=== PATIENT | female | born 1945 | race Caucasian/White ===

== ENCOUNTER 2016-11-25 13:51 | Day surgery (SDC) | payer MEDICARE, BC ==
[~2016-11-25 13:51] MED LIST: Acetaminophen TAB* 325 MG PO PRN; Buffered Lidocaine 0.9% SYRIN* 5 ML/SYR SYRINGE INTRADERM ONE; Buffered Lidocaine 0.9% SYRIN* 5 ML/SYR SYRINGE ONE; Cyclopentolate 1% OPTH.SOL* 2 ML BTL ONE; Ketorolac 0.5% OPHTH (NF) 0.5 % 5 ML BTL ONE; Lidocaine 1% MPF wEPI 200,000* 30 ML SDV ONE; Lidocaine 1% MPF* 2 ML VIAL ONE; Lidocaine 2% EPI 1:200000 MPF* 20 ML VIAL ONE; Neomycin/Polymy/Dex OPTH.SUSP* MAXITROL 0.1% 5 ML ONE; Phenylephrine 2.5% OPTH.SOL* 2 ML BTL ONE; Povidone Iodine 5% OPTH* 30 ML BTL ONE; Proparacaine 0.5% OPHTH.SOL* 15 ML BTL ONE; acetaZOLAMIDE TAB* 250 MG ONE
[2016-11-25] MEDS ORDERED: Midazolam* 1 MG/ML 2 ML VIAL (2 MG) ONE (14:59)
[2016-11-25 15:48] VITALS: BP 145/79
--- NOTE | 2016-11-25 16:23 | OP ---
DATE OF OPERATION: 11/25/2016 - [facility] DATE OF : 1945. SURGEON: Rosendo Campbell M.D. PREOPERATIVE DIAGNOSIS: Cataract left eye. POSTOPERATIVE DIAGNOSIS: Cataract left eye. OPERATIVE PROCEDURE: Phacoemulsification left eye with IOL. DESCRIPTION OF PROCEDURE: The patient was brought to the operating room after being given 1/2% Alcaine with epinephrine drops in the preoperative area. The eye was prepped and draped in the usual sterile fashion. Sterile drape and eyelid speculum were placed. Again, topical 1/2% Alcaine with epinephrine was given. A paracentesis incision was made at the 3 o'clock position with the No.75 blade. Clear cornea incision 2.2 x 2.2-mm was created at the 6 o'clock position starting at the anterior limbus using the 2.2-mm keratome. The anterior chamber was irrigated with 0.4 mL of 1% non-preservative intracameral lidocaine and filled with DisCoVisc. A capsulorrhexis was completed using the cystotome and the Utrata forceps. Hydrodissection was performed with balanced salt solution. The lens nucleus was removed with the Phacoemulsification handpiece without incident. Cortex was removed with the irrigation-aspiration handpiece. The capsular bag was re-inflated using DisCoVisc and an [id number] implant was inserted with the shooter. The irrigation-aspiration handpiece was used to remove all residual DisCoVisc. The eye was refilled with balanced salt solution and the wound checked and found to be watertight. Topical Maxitrol drops were given. [id number]/[facility] #: [id number] [facility]Low
== END 2016-11-25 15:39 | disposition home or self-care (01) ==
LOC: OREAST 13:51
PROVIDERS: ATTEND Specialist
DX: H25.12 Age-related nuclear cataract, left eye (principal); E11.3293 Type 2 diabetes mellitus with mild nonproliferative diabetic retinopathy without macular edema, bilateral; Z96.1 Presence of intraocular lens; F41.9 Anxiety disorder, unspecified; E78.00 Pure hypercholesterolemia, unspecified; I10 Essential (primary) hypertension; Z79.84 Long term (current) use of oral hypoglycemic drugs; Z88.0 Allergy status to penicillin; Z85.820 Personal history of malignant melanoma of skin; Z85.3 Personal history of malignant neoplasm of breast
CPT/HCPCS: A9270-GY; J2001; J2250; V2632

== ENCOUNTER 2016-12-04 06:49 | Day surgery (SDC) | payer MEDICARE, BC ==
[2016-12-04] MEDS ORDERED: Lidocaine 1% INJ* 10 MG/ML 30 ML SDV ONE (07:01)
[2016-12-04 08:40] VITALS: BP 183/89
--- NOTE | 2016-12-04 09:05 | RAD ---
INDICATION: Power port insertion. COMPARISON: Comparison is made with a prior chest x-ray study from October 13, [address] of the chest from October 31, 2016. TECHNIQUE: A single portable view of the chest was obtained upright. FINDINGS: There is a power port central venous catheter present on the right side. The catheter tip projects overlying the superior vena cava. The heart is moderately enlarged and unchanged. There is mild increased density present laterally within the left lung which appears to correlate with nodular pleural thickening on the prior CT of the chest study. The lungs are otherwise clear. No pneumothorax is seen. IMPRESSION: 1. STATUS POST POWERPORT INSERTION, NO EVIDENCE FOR ACUTE FINDING. 2. NODULAR PLEURAL THICKENING IN THE LEFT LUNG.
--- NOTE | 2016-12-04 09:15 | RAD ---
INDICATION: chest port placement COMPARISONS: None relevant TECHNIQUE: Fluoroscopy was provided for a vascular access procedure. Total fluoroscopy time is: 7.5 seconds FINDINGS: Spot images demonstrate a right-sided chest port from a subclavian approach with the tip overlying the cavoatrial junction. IMPRESSION: FLUOROSCOPY WAS PROVIDED FOR A VASCULAR ACCESS PROCEDURE CPT II Codes: 6045F
--- NOTE | 2016-12-04 11:08 | OP ---
CC: Dr. Carcamo; Dr. Spencer; Dr. Parker OPERATIVE REPORT: DATE OF OPERATION: 12/04/16 DATE OF : 41 SURGEON: Tr Carcamo MD ATTENDING RADIOLOGIST: None. ANESTHESIOLOGIST: None. PRE-OP DIAGNOSIS: Carcinoma of the lung. POST-OP DIAGNOSIS: Carcinoma of the lung. OPERATIVE PROCEDURE: Placement of right subclavian 8-[place]ian PowerPort. DESCRIPTION OF PROCEDURE: The patient was supine on the fluoroscopy table. The right chest and nec k region were prepped with antiseptic, draped in a sterile fashion. Local infiltrative anesthesia w as administered and a subclavian incision was created approximately 3 cm. Inferior pocket was creat ed and subclavian venipuncture was carried out. Guidewire passed under fluoroscopic guidance. [place] ter passed through the peel-away introducer, measured and cut at 23 cm, attached to the port, which was sutured in the pocket using 2-0 Prolene. The pocket was closed with 3-0 Vicryl and 5-0 Vicryl. There was good blood return. It was flushed with saline solution and heparinized solution. Steri- Strips were placed and Tegaderm dressing was placed. She tolerated this well and was brought to rec overy room in good condition. There were no complications. No drains. No pathologic specimens. S ponge and instrument counts correct. Estimated blood loss 10 mL. [id number]/[facility] #: [id number]
== END 2016-12-04 09:00 | disposition home or self-care (01) ==
LOC: OR 06:49
PROVIDERS: ATTEND Surgery
DX: C34.90 Malignant neoplasm of unspecified part of unspecified bronchus or lung (principal); Z79.899 Other long term (current) drug therapy
CPT/HCPCS: 71010; C1788; J1642; J2001

== ENCOUNTER 2017-03-24 16:36 | Inpatient (IN) | payer MEDICARE, BC ==
[2017-03-24] MEDS ORDERED: Magnesium Sulf 4 GM/100 ML IV* 4,000 MG/100 ML BAG IVPB ONE (16:39)
[2017-03-24] MEDS ORDERED: Ondansetron INJ* 2 MG/ML VIAL IV PRN (16:51)
[2017-03-24] MEDS ORDERED: ALPRAZolam TAB* 0.25 MG PO PRN (16:52)
[2017-03-24] MEDS ORDERED: Acetaminophen TAB* 325 MG PO PRN (16:54)
[2017-03-24] MEDS: NS 0.9% 1000 ML* 1,000 ML IV SCH (17:46)
[2017-03-25] MEDS: Enoxaparin(*) 80 MG/0.8 ML SYR SUBCUT SCH ×2 (03:33→16:10)
[2017-03-25 05:34] LABS: ABS Basophils 0 10^3/ul (0-0.2); ABS Eosinophils 0 10^3/ul (0-0.6); ABS Lymphocytes 1.2 10^3/ul (1.0-4.8); ABS Monocytes 0.5 10^3/ul (0-0.8); ABS Nucleated RBC 0 10^3/ul; Eosinophil % 1.1 % (0-6); Hematocrit 30 % (35-47); Hemoglobin 10.7 g/dl (12.0-16.0); Mean Corpuscular HGB Conc 35 g/dl (31-36); Mean Corpuscular Hemoglobin 35 pg (27-31); Mean Corpuscular Volume 99 fL (80-97); Mean Platelet Volume 7 um3 (7.4-10.4); Nucleated Red Blood Cells % 0.3; Platelet Count 101 10^3/ul (150-450); Red Blood Count 3.06 10^6/ul (4.0-5.4); Red Cell Distribution Width 18 % (10.5-15); White Blood Count 3.7 10^3/ul (3.5-10.8)
[2017-03-25 05:47] LABS: EGFR Non-African American 94.1 (>60)
[2017-03-25] MEDS: Enalapril TAB* 20 MG PO SCH (08:19)
[2017-03-25] MEDS: Atenolol TAB* 50 MG PO SCH (08:19)
[2017-03-25] MEDS: Folic Acid TAB* 1 MG PO SCH (08:19)
[2017-03-25] MEDS: Citalopram TAB* 10 MG PO SCH (08:19)
--- NOTE | 2017-03-25 10:34 | PN ---
Progress Note - Progress Note Date of Service: 03/25/17 SOAP: Subjective: still quite SOB with any activity. feels similar to previous PE but more intense. no chest pain or diaphoresis Objective: Vital Signs Temp Pulse Resp BP Pulse Ox 98.0 F 87 24 155/94 99 03/25/17 07:20 03/25/17 07:20 03/25/17 07:55 03/25/17 07:20 03/25/17 07:20 perr eomi op moist cta bl s1 s2 nl soft obese nt +bs no le edema a+O x3, nonfocal neurological exam Laboratory Results - last 24 hr 03/24/17 03/25/17 03/25/17 22:21 05:20 05:20 WBC 3.7 RBC 3.06 L Hgb 10.7 L Hct 30 L MCV 99 H MCH 35 H MCHC 35 RDW 18 H Plt Count 101 L MPV 7 L Neut % (Auto) 54.1 Lymph % (Auto) 32.0 Gordon % (Auto) 12.4 H Eos % (Auto) 1.1 Baso % (Auto) 0.4 Absolute Neuts (auto) 2.0 Absolute Lymphs (auto) 1.2 Absolute Monos (auto) 0.5 Absolute Eos (auto) 0 Absolute Basos (auto) 0 Absolute Nucleated RBC 0 Nucleated RBC % 0.3 Sodium 137 Potassium 3.5 Chloride 104 Carbon Dioxide 29 Anion Gap 4 BUN 12 Creatinine 0.62 Est GFR ( Amer) 121.0 Est GFR (Non-Af Amer) 94.1 BUN/Creatinine Ratio 19.4 Glucose 175 H POC Glucose (mg/dL) 200 H Calcium 8.7 Magnesium 2.0 Total Bilirubin 0.70 AST 19 ALT 15 Alkaline Phosphatase 77 Total Protein 6.2 L Albumin 3.3 Globulin 2.9 Albumin/Globulin Ratio 1.1 03/25/17 07:27 WBC RBC Hgb Hct MCV MCH MCHC RDW Plt Count MPV Neut % (Auto) Lymph % (Auto) Gordon % (Auto) Eos % (Auto) Baso % (Auto) Absolute Neuts (auto) Absolute Lymphs (auto) Absolute Monos (auto) Absolute Eos (auto) Absolute Basos (auto) Absolute Nucleated RBC Nucleated RBC % Sodium Potassium Chloride Carbon Dioxide Anion Gap BUN Creatinine Est GFR ( Amer) Est GFR (Non-Af Amer) BUN/Creatinine Ratio Glucose POC Glucose (mg/dL) 178 H Calcium Magnesium Total Bilirubin AST ALT Alkaline Phosphatase Total Protein Albumin Globulin Albumin/Globulin Ratio Acetaminophen (Tylenol Tab*) 650 mg PO Q4H PRN PRN Reason: HEADACHE/PAIN Alprazolam (Xanax Tab*) 0.25 mg PO BID PRN PRN Reason: ANXIETY Atenolol (Tenormin Tab*) 100 mg PO QAM [facility] Last Admin: 03/25/17 08:19 Dose: 100 mg Citalopram Hydrobromide (Celexa Tab*) 10 mg PO QAM [facility] Last Admin: 03/25/17 08:19 Dose: 10 mg Enalapril Maleate (Vasotec Tab*) 20 mg PO QAM [facility] Last Admin: 03/25/17 08:19 Dose: 20 mg Enoxaparin Sodium (Lovenox(*)) 80 mg SUBCUT Q12H [facility] Last Admin: 03/25/17 03:33 Dose: 80 mg Folic Acid (Folvite Tab*) [facility] [place] Admin: 03/25/17 08:19 Dose: 1 mg Sodium Chloride (Ns 0.9% 1000 Ml*) 1,000 mls @ 50 mls/hr IV .PER RATE [facility] Last Admin: 03/24/17 17:46 Dose: 50 mls/hr Ondansetron HCl (Zofran Inj*) 4 mg IV Q4H PRN PRN Reason: nausea or vomiting Assessment: 72 yo F w PMH of remote melanoma, local breast cancer, and then T2N0 lung cancer , with recurrence of her lung CA on palliative carbo/pemetrexed presenting with SOB and found to have large burden acute PE. Clinically slightly better, though still hypoxic and SOB. Will cont observation on [facility] for 24 more hours. Plan: -cont lovenox BID -cont ivfs -cont supplemental O2 -hypokalemia, likely chemo induced, will replete today -pancytopenia: chemo induced will need to watch platelets closely on anticoagulation
[2017-03-25] MEDS: Potassium Chlor TAB* 20 MEQ TAB.ER PO SCH (12:05)
[2017-03-25] MEDS: NS 0.9% 1000 ML* 1,000 ML IV SCH (13:03)
[2017-03-26] MEDS: Enoxaparin(*) 80 MG/0.8 ML SYR SUBCUT SCH (04:52)
[2017-03-26 05:42] LABS: Hematocrit 29 % (35-47); Hemoglobin 10.2 g/dl (12.0-16.0); Mean Corpuscular HGB Conc 35 g/dl (31-36); Mean Corpuscular Hemoglobin 35 pg (27-31); Mean Corpuscular Volume 99 fL (80-97); Red Blood Count 2.93 10^6/ul (4.0-5.4); Red Cell Distribution Width 18 % (10.5-15); White Blood Count 3.1 10^3/ul (3.5-10.8)
[2017-03-26 05:43] LABS: ABS Basophils 0 10^3/ul (0-0.2); ABS Eosinophils 0 10^3/ul (0-0.6); ABS Lymphocytes 1.2 10^3/ul (1.0-4.8); ABS Monocytes 0.5 10^3/ul (0-0.8); ABS Neutrophils 1.3 10^3/ul (1.5-7.7); ABS Nucleated RBC 0 10^3/ul; Eosinophil % 1.2 % (0-6); Lymphocyte % 38.6 % (25-47); Nucleated Red Blood Cells % 0.1
[2017-03-26 06:00] LABS: EGFR Non-African American 97.7 (>60)
[2017-03-26 06:17] LABS: Mean Platelet Volume 7 um3 (7.4-10.4); Platelet Count 82 10^3/ul (150-450)
[2017-03-26] MEDS: Atenolol TAB* 50 MG PO SCH (08:23)
[2017-03-26] MEDS: Folic Acid TAB* 1 MG PO SCH (08:23)
[2017-03-26] MEDS: Potassium Chlor TAB* 20 MEQ TAB.ER PO SCH (08:23)
[2017-03-26] MEDS: Citalopram TAB* 10 MG PO SCH (08:23)
[2017-03-26] MEDS: Enalapril TAB* 20 MG PO SCH (08:23)
--- NOTE | 2017-03-26 09:41 | DS ---
- Discharge Summary Admission Date: 03/24/2017 Discharge Date: 03/26/2017 Discharge Diagnosis: 1. PE: acute high burden with hypoxia, now on Lovenox 2. Hypoxia: improved with supplemental O2 3. DM: resume oral anti-diabetic meds, f/u primary 4. HTN: resume home meds, f/u primary Discharge Medications: Home Medications Medication Instructions Recorded Confirmed Type Atenolol [Tenormin 100 MG] 100 mg PO QAM 11/05/16 03/24/17 History Calcium Carbonate-Vitamin D 1 tab PO BID 11/05/16 03/24/17 History [Calcium 500 + D 500-125 mg-Unit] Citalopram Hydrobromide 10 mg PO QAM 11/05/16 03/24/17 History Cyanocobalamin TAB* [Vitamin B12 1 tab PO QAM 11/05/16 03/24/17 History TAB*] Enalapril Maleate 20 mg PO QAM 11/05/16 03/24/17 History Glipizide [Glucotrol] 10 mg PO QAM 11/05/16 03/24/17 History Lovastatin [Altoprev] 40 mg PO QAM 11/05/16 03/24/17 History Acetaminophen [Acetaminophen ER] 650 mg PO Q6HR PRN 11/21/16 03/24/17 History Folic Acid TAB* [Folvite TAB*] 1 mg PO QAM 11/21/16 03/24/17 History ALPRAZolam TAB* [Xanax TAB*] 0.25 mg PO BID PRN 03/24/17 03/24/17 History Enoxaparin Sodium [Lovenox] 80 mg SUBCUT BID 03/24/17 03/24/17 History Magnesium [Magnesium 400 mg] 1 tab PO 03/24/17 History Ondansetron HCl [Zofran 4 MG TAB] 4 mg PO Q4HR 03/24/17 03/24/17 History Prochlorperazine TAB* [Compazine 10 mg PO Q6H PRN 03/24/17 03/24/17 History Tab*] Enoxaparin(*) [Lovenox(*)] 80 mg SUBCUT Q12H #60 syringe 03/26/17 Rx Potassium Chlor TAB* [Potassium 20 meq PO DAILY #30 tab.er 03/26/17 Rx Chlor TAB 20 MEQ*] Hospital Course: Please see admission note for full H&P, however, briefly, Mrs. Cee is well known to our service due to her recent recurrence of NSCLC s/p resection 2 years ago. She started palliative Carbo/Pem and completed 6 cycles last week. She presented to the office on 03/24 with weakness and concern for diarrhea. Unfortunately in the office she had significant tachypnea, hypoxia on RA, and ultimately was sent for a STAT CTA which reveal multiple PEs with high burden causing increase right ventricular pressure. She was admitted to the hospital for close monitoring with tele and supplemental O2 and was immediately started on anti-coagulation with Lovenox 1 mg/kg (80 mg) subq BID. Over last 2 days she has remained stable with improvement by her report over the last 24 hours in terms of decreasing respiratory effort with exertion. She remains hypoxic on RA however and will be d/c'd home with supplemental O2. I have encouraged her to f/u with her primary care provider (who manages her DM and HTN) and she will f/u with Dr. Spencer following re-staging scan. Plan of care was reviewed at length and all questions answered. >40 min spent with >50% face to face counseling
[2017-03-26 11:40] VITALS: BP 137/77
== END 2017-03-26 13:36 | disposition home or self-care (01) | DRG 175 ==
LOC: MEDTELE 16:46 → OBSVTOIN 03-25 10:00
PROVIDERS: ADMIT Internal Medicine Hematology & Oncology; ATTEND Internal Medicine Hematology & Oncology
DX: I26.99 Other pulmonary embolism without acute cor pulmonale (principal); D61.810 Antineoplastic chemotherapy induced pancytopenia; C34.90 Malignant neoplasm of unspecified part of unspecified bronchus or lung; E11.9 Type 2 diabetes mellitus without complications; R09.02 Hypoxemia; I10 Essential (primary) hypertension; Z79.01 Long term (current) use of anticoagulants; R06.82 Tachypnea, not elsewhere classified; Z85.820 Personal history of malignant melanoma of skin; Z88.0 Allergy status to penicillin; E78.00 Pure hypercholesterolemia, unspecified; Z98.51 Tubal ligation status; Z72.89 Other problems related to lifestyle; Z82.49 Family history of ischemic heart disease and other diseases of the circulatory system; Z85.3 Personal history of malignant neoplasm of breast; E87.6 Hypokalemia
CPT/HCPCS: 36415; 36591; 71275; 80053; 83735; 85025; 85060; 96360; 96361; 99215; 99220; 99224; 99239; A9270-GY; G0378; G0463; J1642; J1650; J3475; Q9967

== ENCOUNTER 2017-04-12 18:10 | Emergency (ER) | payer MEDICARE, BC ==
[2017-04-12] MEDS ORDERED: Ondansetron INJ* 2 MG/ML VIAL IV ONE (19:13)
[2017-04-12] MEDS ORDERED: NS 0.9% 1000 ML* 1,000 ML IV ONE (19:13)
--- NOTE | 2017-04-12 19:37 | RAD ---
INDICATION: Vomiting. COMPARISON: Comparison is made with a prior study from December 04, 2016. TECHNIQUE: A portable view of the chest was obtained. FINDINGS: There is a power port central venous catheter on the right side. The catheter tip projects over the superior vena cava. The heart appears mildly enlarged and unchanged. There is elevation of the left hemidiaphragm which is unchanged and a small left basilar infiltrate. No pleural effusion is seen. IMPRESSION: SMALL LEFT BASILAR INFILTRATE.
[2017-04-12 19:47] LABS: Hematocrit 34 % (35-47); Hemoglobin 11.9 g/dl (12.0-16.0); Mean Corpuscular HGB Conc 35 g/dl (31-36); Mean Corpuscular Hemoglobin 35 pg (27-31); Mean Corpuscular Volume 100 fL (80-97); Mean Platelet Volume 7 um3 (7.4-10.4); Platelet Count 143 10^3/ul (150-450); Red Blood Count 3.42 10^6/ul (4.0-5.4); Red Cell Distribution Width 17 % (10.5-15); White Blood Count 11.3 10^3/ul (3.5-10.8)
[2017-04-12 19:54] LABS: ABS Basophils 0.1 10^3/ul (0-0.2); ABS Eosinophils 0 10^3/ul (0-0.6); ABS Lymphocytes 0.6 10^3/ul (1.0-4.8); ABS Monocytes 1.9 10^3/ul (0-0.8); ABS Neutrophils 8.7 10^3/ul (1.5-7.7); ABS Nucleated RBC 0 10^3/ul; Eosinophil % 0 % (0-6); Lymphocyte % 5.7 % (25-47); Nucleated Red Blood Cells % 0
[2017-04-12 20:05] LABS: EGFR Non-African American 72.2 (>60)
[2017-04-12] MEDS ORDERED: Levofloxacin 750 MG IVPREMIX(* 750 MG/150 ML BAG IVPB ONE (20:05)
--- NOTE | 2017-04-12 21:52 | ED ---
Rian Andersen Thomas, scribed for Asher Best MD on 04/12/17 at 1936 . GI/ HPI - HPI Summary HPI Summary: The patient is a 72 year old female complaining of vomiting that began yesterday. She had an episode of diarrhea. The patient additionally complains of body aches and a chronic cough. She did not eat today. She has a history of lung cancer and she had immunotherapy three days ago. She is on Lovenox for a previous diagnosis of pulmonary embolism. - History of Current Complaint Chief Complaint: EDNauseaVomitDiarrh Time Seen by Provider: 04/12/17 18:34 Stated Complaint: VOMITING/FEVER Hx Obtained From: Patient Onset/Duration: Started Days Ago - 1, Still Present Timing: Constant Severity: Moderate Current Severity: Moderate Pain Intensity: 4 Associated Signs and Symptoms: Positive: Other: - Vomiting, diarrhea, cough, body aches Aggravating Factor(s): Nothing Alleviating Factor(s): Nothing - Additional Pertinent History Primary Care Physician: ADRIAN - Allergy/Home Medications Allergies/Adverse Reactions: Allergies Allergy/AdvReac Type Severity Reaction Status Date / Time Penicillins Allergy Fever Verified 03/30/17 10:09 PMH/Surg Hx/FS Hx/Imm Hx Endocrine/Hematology History: Reports: Hx Diabetes - Type II Denies: Hx Systemic Lupus Erythematosus, Hx Thyroid Disease, Hx Anemia Cardiovascular History: Reports: Hx Coronary Artery Disease - CHOLESTEROL CONTROL WITH MEDS, Hx Hypercholesterolemia, Hx Hypertension Denies: Hx Congestive Heart Failure, Hx Pacemaker/ICD Respiratory History: Reports: Other Respiratory Problems/Disorders - LUNG CA- LEFT GI History: Reports: Other GI Disorders - OCCASIONAL INDIGESTION Denies: Hx Jaundice History: Denies: Hx Dialysis, Hx Renal Disease Musculoskeletal History: Reports: Hx Arthritis - BILATERAL KNEES Denies: Hx Rheumatoid Arthritis, Hx Osteoporosis Sensory History: Reports: Hx Cataracts - BILAT, Hx Contacts or Glasses - GLASSES FOR DISTANT Denies: Hx Hearing Aid Opthamlomology History: Reports: Hx Cataracts - BILAT, Hx Contacts or Glasses - GLASSES FOR DISTANT Psychiatric History: Denies: Hx Panic Disorder - Cancer History Cancer Type, Location and Year: Melanoma, Breast 2012, Lung 2013 Hx Chemotherapy: Yes - BREAST Hx Radiation Therapy: Yes - BREAST - Surgical History Surgery Procedure, Year, and Place: MELANOMA REMOVED FROM LEFT ANKLE AND BACK, OFFICE. 2000 APPENDECTOMY, [facility]. 2000 & FEW YEARS LATER, VENTRAL HERNIA REPAIR AT APPENDECTOMY SITE, [facility], lumpectomy left 2012. LL lobectomy 05/04/14. NEEDLE BIOPSY LEFT BREAST 03/12/2015. BILATERAL TUBAL LIGATION, [facility] Hx Anesthesia Reactions: No Infectious Disease History: No Infectious Disease History: Denies: Traveled Outside the [place] in Last 30 Days - Family History Known Family History: Positive: Other - no cancer hx, no malignant hyperthermia hx, no anesthesia reaction hx - Social History Alcohol Use: None Alcohol Amount: 2 MONTHLY Substance Use Type: Reports: None Hx Tobacco Use: No Smoking Status (MU): Never Smoked Tobacco Review of Systems Positive: Cough Positive: Vomiting, Diarrhea Positive: Myalgia All Other Systems Reviewed And Are Negative: Yes Physical Exam - Summary Physical Exam Summary: Appearance: The patient is well-nourished in no acute distress and in no acute pain. Skin: The skin is warm and dry and skin color reflects adequate perfusion. HEENT: The head is normocephalic and atraumatic. The pupils are equal and reactive. The conjunctivae are clear and without drainage. Nares are patent and without drainage. Mouth reveals moist mucous membranes and the throat is without erythema and exudate. The external ears are intact. The ear canals are patent and without drainage. The tympanic membranes are intact. Neck: the neck is supple with full range of motion and non-tender. There are no carotid bruits. There is no neck vein distension. Respiratory: She has crackles in bilateral bases. Cardiovascular: Heart is regular rate and rhythm. There is no murmur or rub auscultated. There is no peripheral edema and pulses are symmetrical and equal. Abdomen: The abdomen is soft and non-tender. There are normal bowel sounds heard in all four quadrants and there is no organomegaly palpated. Musculoskeletal: There is no back tenderness noted. Extremities are non-tender with full range of motion. There is good capillary refill. There is no peripheral edema or calf tenderness elicited. Neurological: Patient is alert and oriented to person, place and time. The patient has symmetrical motor strength in all four extremities. Cranial nerves are grossly intact. Deep tendon reflexes are symmetrical and equal in all four extremities. Psychiatric: The patient has an appropriate affect and does not exhibit any anxiety or depression. Triage Information Reviewed: Yes Vital Signs On Initial Exam: Initial Vitals Temp Pulse Resp BP Pulse Ox 99.1 F 112 20 129/90 94 04/12/17 18:17 18 18:17 04/12/17 18:17 18 18:17 04/12/17 18:17 Vital Signs Reviewed: Yes Diagnostics - Vital Signs Vital Signs Temp Pulse Resp BP Pulse Ox 04/12/17 19:00 105 134/69 94 04/12/17 18:42 111 94 04/12/17 18:41 134/70 04/12/17 18:17 99.1 F 112 20 129/90 94 - Laboratory Lab Results: Lab Results 04/12/17 04/12/17 04/12/17 Range/Units 19:36 19:36 19:36 WBC 11.3 H (3.5-10.8) 10^3/ul RBC 3.42 L (4.0-5.4) 10^6/ul Hgb 11.9 L (12.0-16.0) g/dl Hct 34 L (35-47) % MCV 100 H (80-97) fL MCH 35 H (27-31) pg MCHC 35 (31-36) g/dl RDW 17 H (10.5-15) % Plt Count 143 L (150-450) 10^3/ul MPV 7 L (7.4-10.4) um3 Neut % (Auto) 76.9 (38-83) % Lymph % (Auto) 5.7 L (25-47) % Mcculloch % (Auto) 16.7 H (1-9) % Eos % (Auto) 0 (0-6) % Baso % (Auto) 0.7 (0-2) % Absolute Neuts (auto) 8.7 H (1.5-7.7) 10^3/ul Absolute Lymphs (auto) 0.6 L (1.0-4.8) 10^3/ul Absolute Monos (auto) 1.9 H (0-0.8) 10^3/ul Absolute Eos (auto) 0 (0-0.6) 10^3/ul Absolute Basos (auto) 0.1 (0-0.2) 10^3/ul Absolute Nucleated RBC 0 10^3/ul Nucleated RBC % 0 Sodium 131 L (133-145) mmol/L Potassium 4.1 (3.5-5.0) mmol/L Chloride 95 L (101-111) mmol/L Carbon Dioxide 24 (22-32) mmol/L Anion Gap 12 H (2-11) mmol/L BUN 8 (6-24) mg/dL Creatinine 0.78 (0.51-0.95) mg/dL Est GFR ( Amer) 92.8 (>60) Est GFR (Non-Af Amer) 72.2 (>60) BUN/Creatinine Ratio 10.3 (8-20) Glucose 294 H (70-100) mg/dL Lactic Acid 1.9 (0.5-2.0) mmol/L Calcium 9.9 (8.6-10.3) mg/dL Total Bilirubin 1.00 (0.2-1.0) mg/dL AST 23 (13-39) U/L ALT 18 (7-52) U/L Alkaline Phosphatase 71 (34-104) U/L Total Creatine Kinase 37 (10-223) U/L Troponin I 0.03 (<0.04) ng/mL C-Reactive Protein 117.53 H (< 5.00) mg/L Total Protein 7.9 (6.4-8.9) g/dL Albumin 4.1 (3.2-5.2) g/dL Globulin 3.8 (2-4) g/dL Albumin/Globulin Ratio 1.1 (1-3) Lipase 25 (11.0-82.0) U/L Result Diagrams: 04/12/17 19:36 04/12/17 19:36 Lab Statement: Any lab studies that have been ordered have been reviewed, and results considered in the medical decision making process. - Radiology CXR Xray Interpretation: Positive (See Comments) - SMALL LEFT BASILAR INFILTRATE. Dr. Best has reviewed this report. Radiology Interpretation Completed By: Radiologist GIGU Course/Dx - Course Course Of Treatment: Ms. Cee presented with nausea as her primary C/O. Her CXR suggested infiltrate and her labs agreed with WBC and CRP elevations. She was stable here in the ED, given IV lovenox and will be D/C'd back to home to F/U with Dr. Spencer. - Diagnoses Provider Diagnoses: Pneumonia Discharge - Discharge Plan Condition: Stable Disposition: HOME Prescriptions: Levofloxacin TAB* [Levaquin TAB*] 750 mg PO DAILY #10 tab Patient Education Materials: Pneumonia (ED) Referrals: Saundra Escamilla MD [Primary Care Provider] - 3 Days Additional Instructions: Follow up with your primary care physician in three days. Return to the emergency department for any new or worsening symptoms. The documentation as recorded by the Rian gentile Thomas accurately reflects the service I personally performed and the decisions made by me, Asher Best MD.
[2017-04-12 22:43] VITALS: BP 106/66
== END 2017-04-12 22:57 | disposition home or self-care (01) ==
LOC: ED 18:10
DX: J18.9 Pneumonia, unspecified organism (principal); R11.10 Vomiting, unspecified; R19.7 Diarrhea, unspecified; R05 Cough; Z86.711 Personal history of pulmonary embolism
CPT/HCPCS: 36415; 71045; 80053; 82550; 83605; 83690; 84484; 85025; 86140; 96374; 99284; J2405

== ENCOUNTER 2017-04-30 21:41 | Observation (INO) | payer MEDICARE, BC ==
[2017-04-30] MEDS ORDERED: Acetaminophen TAB* 325 MG PO ONE (23:35)
[2017-04-30] MEDS ORDERED: NS 0.9% 1000 ML* 1,000 ML IV ONE (23:36)
[2017-04-30] MEDS ORDERED: Ondansetron INJ* 2 MG/ML VIAL IV ONE (23:36)
[2017-05-01] MEDS ORDERED: Levofloxacin 750 MG IVPREMIX(* 750 MG/150 ML BAG IVPB ONE (00:18)
[2017-05-01 00:35] LABS: ABS Basophils 0 10^3/ul (0-0.2); ABS Eosinophils 0 10^3/ul (0-0.6); ABS Lymphocytes 0.6 10^3/ul (1.0-4.8); ABS Monocytes 1.1 10^3/ul (0-0.8); ABS Neutrophils 6.5 10^3/ul (1.5-7.7); ABS Nucleated RBC 0 10^3/ul; Eosinophil % 0.1 % (0-6); Hematocrit 32 % (35-47); Hemoglobin 11.3 g/dl (12.0-16.0); Lymphocyte % 7.4 % (25-47); Mean Corpuscular HGB Conc 35 g/dl (31-36); Mean Corpuscular Hemoglobin 35 pg (27-31); Mean Corpuscular Volume 99 fL (80-97); Mean Platelet Volume 7 um3 (7.4-10.4); Nucleated Red Blood Cells % 0.1; Platelet Count 136 10^3/ul (150-450); Red Blood Count 3.25 10^6/ul (4.0-5.4); Red Cell Distribution Width 17 % (10.5-15); White Blood Count 8.2 10^3/ul (3.5-10.8)
[2017-05-01 00:43] LABS: INR 1.02 (0.77-1.02)
[2017-05-01 00:48] LABS: EGFR Non-African American 70.1 (>60)
[2017-05-01 02:17] LABS: Urine Appearance Clear; Urine Blood Negative (Negative); Urine Color Yellow; Urine Ketones 1+ (Negative); Urine Protein 1+(30 mg/dL) (Negative); Urine Specific Gravity 1.016 (1.010-1.030); Urine Urobilinogen Negative (Negative)
--- NOTE | 2017-05-01 02:39 | ED ---
Tere Andersen Nilda, scribed for Nicolás Marie MD on 04/30/17 at 2342 . Complex/Multi-Sys Presentation - HPI Summary HPI Summary: This patient is a 72 year old F presenting to [facility] accompanied by with a chief complaint of constant malaise since this morning. Patient reports 101.2 F fever and vomiting, but denies diarrhea, pain, and SOB. The patient rates the pain 0/10 in severity. Symptoms aggravated and alleviated by nothing. She notes she occasionally uses O2 at home. Medications include Lovenox shots (120 mg, once per day) since March 2017 after being Dx with PE in [facility]. Dr. Spencer is managing clots. Hx melanoma, breast CA (2012), Left lung CA (chemotherapy previously, immunotherapy currently, via port). PSHx left lung surgery. - History Of Current Complaint Chief Complaint: EDNauseaVomitDiarrh Time Seen by Provider: 04/30/17 23:24 Hx Obtained From: Patient Onset/Duration: Sudden Onset, Lasting Hours, Still Present Timing: Constant Location: Negative Aggravating Factor(s): nothing Alleviating Factor(s): nothing Associated Signs And Symptoms: Positive: Other - malaise, 101.2 F fever and vomiting, but denies diarrhea, pain, and SOB. - Allergies/Home Medications Allergies/Adverse Reactions: Allergies Allergy/AdvReac Type Severity Reaction Status Date / Time Penicillins Allergy Fever Verified 03/30/17 10:09 PMH/Surg Hx/FS Hx/Imm Hx Endocrine/Hematology History: Reports: Hx Diabetes - Type II Denies: Hx Systemic Lupus Erythematosus, Hx Thyroid Disease, Hx Anemia Cardiovascular History: Reports: Hx Coronary Artery Disease - CHOLESTEROL CONTROL WITH MEDS, Hx Hypercholesterolemia, Hx Hypertension Denies: Hx Congestive Heart Failure, Hx Pacemaker/ICD Respiratory History: Reports: Other Respiratory Problems/Disorders - LUNG CA- LEFT GI History: Reports: Other GI Disorders - OCCASIONAL INDIGESTION Denies: Hx Jaundice History: Denies: Hx Dialysis, Hx Renal Disease Musculoskeletal History: Reports: Hx Arthritis - BILATERAL KNEES Denies: Hx Rheumatoid Arthritis, Hx Osteoporosis Sensory History: Reports: Hx Cataracts - BILAT, Hx Contacts or Glasses - GLASSES FOR DISTANT Denies: Hx Hearing Aid Opthamlomology History: Reports: Hx Cataracts - BILAT, Hx Contacts or Glasses - GLASSES FOR DISTANT Psychiatric History: Denies: Hx Panic Disorder - Cancer History Cancer Type, Location and Year: Melanoma, Breast 2013, Lung 2014 Hx Chemotherapy: Yes - BREAST Hx Radiation Therapy: Yes - BREAST - Surgical History Surgery Procedure, Year, and Place: MELANOMA REMOVED FROM LEFT ANKLE AND BACK, OFFICE. [place] [facility] [place] [facility] [place] & FEW YEARS LATER, VENTRAL HERNIA REPAIR AT [place] [facility] [place] [facility] [place]. LL lobectomy 05/04/14. NEEDLE BIOPSY LEFT BREAST 03/12/2015. [place] [facility] [place] Anesthesia Reactions: No Infectious Disease History: No Infectious Disease History: Denies: Traveled Outside the [place] in Last 30 Days - Family History Known Family History: Positive: Other - no cancer hx, no malignant hyperthermia hx, no anesthesia reaction hx - Social History Alcohol Use: None Alcohol Amount: 2 MONTHLY Substance Use Type: Reports: None Hx Tobacco Use: No Smoking Status (MU): Never Smoked Tobacco Review of Systems Positive: Fever, Other - malaise Negative: Shortness Of Breath Positive: Vomiting. Negative: Diarrhea Positive: Other - negative pain All Other Systems Reviewed And Are Negative: Yes Physical Exam - Summary Physical Exam Summary: VITAL SIGNS: Reviewed. GENERAL: Patient is a well-developed and nourished female who is lying comfortable in the stretcher. Patient is not in any acute respiratory distress. HEAD AND FACE: No signs of trauma. No ecchymosis, hematomas or skull depressions. No sinus tenderness. EYES: PERRLA, EOMI x 2, No injected conjunctiva, no nystagmus. EARS: Hearing grossly intact. Ear canals and tympanic membranes are within normal limits. MOUTH: Oropharynx within normal limits. NECK: Supple, trachea is midline, no adenopathy, no JVD, no carotid bruit, no c- spine tenderness, neck with full ROM. CHEST: Symmetric, no tenderness at palpation LUNGS: Clear to auscultation bilaterally. No wheezing or crackles. Decreased breath sounds on left. CVS: Tachycardic, S1 and S2 present, no murmurs or gallops appreciated. ABDOMEN: Soft, non-tender. No signs of distention. No rebound no guarding, and no masses palpated. Bowel sounds are normal. EXTREMITIES: FROM in all major joints, no edema, no cyanosis or clubbing. NEURO: Alert and oriented x 3. No acute neurological deficits. Speech is normal and follows commands. SKIN: Dry and warm Triage Information Reviewed: Yes Vital Signs On Initial Exam: Initial Vitals Temp Pulse Resp BP Pulse Ox 98.6 F 116 20 135/75 96 04/30/17 21:48 04/30/17 21:48 04/30/17 21:48 04/30/17 21:48 04/30/17 21:48 Vital Signs Reviewed: Yes Diagnostics - Vital Signs Vital Signs Temp Pulse Resp BP Pulse Ox 04/30/17 22:45 98.7 F 145 20 174/11 97 04/30/17 21:48 98.6 F 116 20 135/75 96 - Laboratory Result Diagrams: 05/01/17 00:15 05/01/17 00:15 Lab Statement: Any lab studies that have been ordered have been reviewed, and results considered in the medical decision making process. - Radiology CXR Radiology Interpretation Completed By: ED Physician - CXR reveals left lower lobe infiltrate. - EKG 2248 Cardiac Rate: Other Rate EKG Interpretation: Junctional rhythm, 118 bpm, Nml axis. No ischemic changes. Re-Evaluation - Re-Evaluation First Eval Re-Evaluation Time: 02:05 Comment: Reviewed labs and imaging and plan to admit pt. Complex Multi-Symp Course/Dx Assessment/Plan: Pt is a 72 y/o F with multiple locations of CA in the past, who is currently on immunotherapy. She presents with fever and vomiting today. UA reveals UTI. CXR reveals left lower lobe infiltrate. Pt will be admitted with Dx PNA and UTI. - Diagnoses Provider Diagnoses: PNA (pneumonia), UTI (urinary tract infection) - Physician Notifications Discussed Care Of Patient With: Jill Theodore - Hospitalist Time Discussed With Above Provider: 02:24 Instructed by Provider To: Admit As Inpatient Discharge - Discharge Plan Condition: Stable Disposition: ADMITTED TO [facility] Referrals: Saundra Escamilla MD [Primary Care Provider] - The documentation as recorded by the Tere gentile Nilda accurately reflects the service I personally performed and the decisions made by me, Nicolás Marie MD.
[2017-05-01] MEDS ORDERED: ALPRAZolam TAB* 0.25 MG PO PRN (03:34)
[2017-05-01] MEDS ORDERED: Acetaminophen TAB* 325 MG PO PRN (03:34)
[2017-05-01] MEDS ORDERED: Enoxaparin(*) 80 MG/0.8 ML SYR SUBCUT SCH (04:00)
[2017-05-01] MEDS ORDERED: Enoxaparin(*) 150 MG/ML 1 ML SYRINGE SUBCUT SCH (04:00)
[2017-05-01] MEDS ORDERED: Dextrose 50% Syringe 50 ML* 25 GM/50 ML SYRINGE IV PUSH PRN (04:07)
[2017-05-01] MEDS: NS 0.9% 1000 ML* 1,000 ML IV SCH ×2 (04:31→14:36)
--- NOTE | 2017-05-01 07:48 | RAD ---
INDICATION: Fever. COMPARISON: Comparison is made with a prior study from April 12, 2017. TECHNIQUE: A portable view of the chest was obtained. FINDINGS: There is a power port central venous catheter present on the right side. The catheter tip projects over the region of superior vena cava. The heart is mildly enlarged and unchanged. There is a focal infiltrate present at the left lung base which is unchanged. The right lung appears clear. IMPRESSION: LEFT BASILAR INFILTRATE, UNCHANGED.
--- NOTE | 2017-05-01 08:09 | RAD ---
HISTORY: Lung cancer, breast cancer, evaluate infiltrate COMPARISONS: Chest x-ray dated April 30, 2012, CT dated March 24, 2017, CT dated January 26, 2017 TECHNIQUE: Multiple contiguous axial CT scans of the chest were obtained without intravenous contrast. Coronal and sagittal multiplanar reformations are also submitted for review. FINDINGS: The study is limited by the lack of intravenous contrast. This limits evaluation of the solid organs and vasculature. NECK AND THYROID: There is a 0.7 cm left thyroid nodule. CHEST WALL: There is no lower cervical, axillary, or supraclavicular lymphadenopathy by size criteria. A right-sided chest port is noted. There is post surgical change to the left breast, similar to the previous examination. HEART AND PERICARDIUM: Coronary calcifications are noted. AORTA AND PULMONARY VASCULATURE: The aorta and pulmonary vasculature are normal. MEDIASTINUM: There are multiple prevascular lymph nodes measuring up to 1 cm in short axis, similar to the previous examination. VAN: Evaluation of the van is limited by the lack of intravenous contrast. There is no obvious hilar lymphadenopathy by size criteria. AIRWAY AND ESOPHAGUS: The airway is unremarkable, without endobronchial filling defect. The esophagus is grossly normal. LUNG PARENCHYMA: There is post surgical change to the left lung. There is dependent atelectasis of the left lower lobe. There is nodularity of the left lower lobe best seen on axial image 40, with 2 nodules measuring up to 0.8 cm in size. These can be identified on the January 26, 2017 examination and are stable.. PLEURA: There is minimal pleural thickening on the left. There is elevation of left hemidiaphragm. UPPER ABDOMEN: The upper abdomen is unremarkable. BONES AND SOFT TISSUES: Degenerative changes are noted of the spine. This periosteal reaction along the left seventh rib, stable from the previous examinations. OTHER: None. IMPRESSION: 1. STABLE LEFT LOWER LOBE LUNG NODULES. 2. ELEVATION LEFT HEMIDIAPHRAGM WITH MINIMAL DEPENDENT ATELECTASIS OF LEFT LUNG BASE. 3. STABLE BORDERLINE ENLARGED PREVASCULAR LYMPH NODES.
[2017-05-01] MEDS: Enoxaparin(*) 150 MG/ML 1 ML SYRINGE SUBCUT SCH (08:15)
[2017-05-01] MEDS: Insulin LISPRO* 1 UNITS UNIT SUBCUT SCH ×4 (08:15→20:07)
[2017-05-01] MEDS: Enalapril TAB* 20 MG PO SCH (08:16)
[2017-05-01] MEDS: Citalopram TAB* 10 MG PO SCH (08:16)
[2017-05-01] MEDS: Atenolol TAB* 50 MG PO SCH (08:16)
[2017-05-01] MEDS: Atorvastatin* 10 MG TAB PO SCH (08:16)
--- NOTE | 2017-05-01 11:05 | PN ---
Progress Note - Progress Note Date of Service: 05/01/17 SOAP: Subjective: [This is a 72 yo female with NSCLC currently treated with nivolumab and followed by Dr Spencer who presented with c/o fever, n/v. She had a similar constellation of symptoms 04/12 after her first cycle of nivolumab. She had a L basilar infiltrate noted on CXR at that time and was treated for a PNA with Levaquin. She completed 10d of therapy 04/22. Prior to her PNA tx she was hospitalized (03/24-03/26) with multiple PEs and has been treated with Lovenox since. She has a chronic, somewhat productive cough which remains unchanged. Denies SOB or CP. Her 2nd cycle of nivolumab was 04/23. She has felt well for several days following the infusion and she started with n/v yesterday. She did note a fever of 101F at home, but has been afebrile at home. On repeat CXR in the ER she has a persistent L basilar infiltrate. CT of the chest was completed which shows what looks more like atelectasis than an infectious infiltrate. Her known pulmonary disease looked stable on imaging from yesterday today. She was started on ceftriaxone and azithromycin for a suspected PNA. This am, patient's vomiting has subsided. She notes no nausea, but a poor appetite. No associated diarrhea or abd pain.] Objective: [ Acetaminophen (Tylenol Tab*) 650 mg PO Q6H PRN PRN Reason: PAIN Alprazolam (Xanax Tab*) 0.25 mg PO BID PRN PRN Reason: ANXIETY Atenolol (Tenormin Tab*) 100 mg PO [facility] Last Admin: 05/01/17 08:16 Dose: 100 mg Atorvastatin Calcium (Lipitor*) 10 mg PO [facility] Last Admin: 05/01/17 08:16 Dose: 10 mg Citalopram Hydrobromide (Celexa Tab*) 10 mg PO [facility] Last Admin: 05/01/17 08:16 Dose: 10 mg Dextrose (D50w Syringe 50 Ml*) 12.5 gm IV PUSH .FOR FS < 60 - SS PRN PRN Reason: FS < 60 Enalapril Maleate (Vasotec Tab*) 20 mg PO [facility] Last Admin: 05/01/17 08:16 Dose: 20 mg Enoxaparin Sodium (Lovenox(*)) 120 mg SUBCUT Q24H [facility] Last Admin: 05/01/17 08:15 Dose: 120 mg Azithromycin 500 mg/ Sodium (Chloride) 250 mls @ 250 mls/hr IVPB Q24H [facility] Sodium Chloride (Ns 0.9% 1000 Ml*) 1,000 mls @ 100 mls/hr IV PER RATE [facility] Last Admin: 05/01/17 04:31 Dose: 100 mls/hr Ceftriaxone Sodium 1 gm/ (Sodium Chloride) 50 mls @ 200 mls/hr IVPB Q24H [facility] Insulin Human Lispro (Humalog*) 0 units SUBCUT ACHS [facility] PRN Reason: Protocol Last Admin: 05/01/17 08:15 Dose: 9 unit Ondansetron HCl (Zofran Inj*) 4 mg IV Q6H PRN PRN Reason: NAUSEA Laboratory Results - last 24 hr 05/01/17 05/01/17 05/01/17 00:15 00:15 00:15 WBC 8.2 RBC 3.25 L Hgb 11.3 L Hct 32 L MCV 99 H MCH 35 H MCHC 35 RDW 17 H Plt Count 136 L MPV 7 L Neut % (Auto) 79.0 Lymph % (Auto) 7.4 L [place] % (Auto) 13.1 H Eos % (Auto) 0.1 Baso % (Auto) 0.4 Absolute Neuts (auto) 6.5 Absolute Lymphs (auto) 0.6 L Absolute Monos (auto) 1.1 H Absolute Eos (auto) 0 Absolute Basos (auto) 0 Absolute Nucleated RBC 0 Nucleated RBC % 0.1 INR (Anticoag Therapy) 1.02 APTT 31.6 Sodium 129 L Potassium 4.1 Chloride 97 L Carbon Dioxide 26 Anion Gap 6 BUN 12 Creatinine 0.80 Est GFR ( Amer) 90.2 Est GFR (Non-Af Amer) 70.1 BUN/Creatinine Ratio 15.0 Glucose 336 H POC Glucose (mg/dL) Lactic Acid Calcium 9.7 Total Bilirubin 0.90 AST 35 ALT 23 Alkaline Phosphatase 74 Total Creatine Kinase 29 Troponin I 0.03 Total Protein 7.5 Albumin 3.8 Globulin 3.7 Albumin/Globulin Ratio 1.0 Procalcitonin Urine Color Urine Appearance Urine pH Ur Specific [place] Urine Protein Urine Ketones Urine Blood Urine Nitrate Urine Bilirubin Urine Urobilinogen Ur Leukocyte Esterase Urine WBC (Auto) Urine RBC (Auto) Ur Squamous Epith Cells Urine Bacteria Urine Glucose Influenza A (Rapid) Influenza B (Rapid) 05/01/17 05/01/17 05/01/17 00:15 00:15 00:57 WBC RBC Hgb Hct MCV MCH MCHC RDW Plt Count MPV Neut % (Auto) Lymph % (Auto) [place] % (Auto) Eos % (Auto) Baso % (Auto) Absolute Neuts (auto) Absolute Lymphs (auto) Absolute Monos (auto) Absolute Eos (auto) Absolute Basos (auto) Absolute Nucleated RBC Nucleated RBC % INR (Anticoag Therapy) APTT Sodium Potassium Chloride Carbon Dioxide Anion Gap BUN Creatinine Est GFR ( Amer) Est GFR (Non-Af Amer) BUN/Creatinine Ratio Glucose POC Glucose (mg/dL) Lactic Acid 1.7 Calcium Total Bilirubin AST ALT Alkaline Phosphatase Total Creatine Kinase Troponin I Total Protein Albumin Globulin Albumin/Globulin Ratio Procalcitonin 0.1 Urine Color Urine Appearance Urine pH Ur Specific [place] Urine Protein Urine Ketones Urine Blood Urine Nitrate Urine Bilirubin Urine Urobilinogen Ur Leukocyte Esterase Urine WBC (Auto) Urine RBC (Auto) Ur Squamous Epith Cells Urine Bacteria Urine Glucose Influenza A (Rapid) Negative Influenza B (Rapid) Negative 05/01/17 05/01/17 01:53 07:35 WBC RBC Hgb Hct MCV MCH MCHC RDW Plt Count MPV Neut % (Auto) Lymph % (Auto) [place] % (Auto) Eos % (Auto) Baso % (Auto) Absolute Neuts (auto) Absolute Lymphs (auto) Absolute Monos (auto) Absolute Eos (auto) Absolute Basos (auto) Absolute Nucleated RBC Nucleated RBC % INR (Anticoag Therapy) APTT Sodium Potassium Chloride Carbon Dioxide Anion Gap BUN Creatinine Est GFR ( Amer) Est GFR (Non-Af Amer) BUN/Creatinine Ratio Glucose POC Glucose (mg/dL) 276 H Lactic Acid Calcium Total Bilirubin AST ALT Alkaline Phosphatase Total Creatine Kinase Troponin I Total Protein Albumin Globulin Albumin/Globulin Ratio Procalcitonin Urine Color Yellow Urine Appearance Clear Urine pH 6.0 Ur Specific [place] 1.016 Urine Protein 1+(30 mg/dl) A Urine Ketones 1+ A Urine Blood Negative Urine Nitrate Negative Urine Bilirubin Negative Urine Urobilinogen Negative Ur Leukocyte Esterase 1+ A Urine WBC (Auto) 1+(6-10/hpf) A Urine RBC (Auto) 1+(3-5/hpf) A Ur Squamous Epith Cells Present A Urine Bacteria Absent Urine Glucose 3+(>=500 mg/dl) A Influenza A (Rapid) Influenza B (Rapid) Vital Signs Temp Pulse Resp BP Pulse Ox 98.0 F 97 20 119/63 97 05/01/17 07:13 05/01/17 07:13 05/01/17 07:13 05/01/17 07:13 05/01/17 08:00 ] Assessment: [This is a 72 yo female with NSCLC followed by Dr Spencer, currently being treated with nivolumab who presented with fever, n/v.] Plan: [1. N/v - This seems less likely to be related to a PNA. She was febrile at home, but no fever observed here in the hospital. Her UA is suggestive of a possible UTI which would explain her symptoms. May also be a viral gastroenteritis. Cont ceftriaxone and wait for urine culture Stop azithromycin Hydrate with NS Cont antiemetics Re-eval tomorrow 2. NSCLC - Currently treated with nivolumab 3. Diabetes - Noted hyperglycemia which patients states she has had a difficult time controlling recently. She has not been tolerating metformin at home due to diarrhea and has since stopped. Her hyperglycemia may be contributing to the intermittent n/v as well. Will follow serum glucose and cover with mealtime SS. She may benefit from initiating basal insulin at discharge that can be titrated for improved control 4. Recent PE - Asx, cont Lovenox Dispo: Plan to cont obs overnight, re-eval for possible dc tomorrow.]
--- NOTE | 2017-05-01 12:20 | HP ---
CC: Dr. Escamilla; Dr. Spencer * HISTORY AND PHYSICAL: DATE OF ADMISSION: 05/01/17 PRIMARY CARE PROVIDER: Dr. Escamilla. ONCOLOGIST: Dr. Spencer. CHIEF COMPLAINT: Nausea, vomiting, and fever. HISTORY OF PRESENT ILLNESS: Ms. Cee is a 72-year-old female with a history of recurrent non-small cell lung cancer who is currently on immunotherapy every 2 weeks and is status post partial left lobectomy, diabetes, hyperlipidemia, recent diagnosis of high volume burden of PE with RV strain, melanoma and breast cancer, who presents to emergency room with complaints of nausea, vomiting, and fever. The patient states that today prior to admission she felt very tired. She vomited 2 to 3 times at home. She took her temperature and it was elevated at 101.2. She contacted Dr. Spencer's office and was referred to the emergency room. Of note, the patient in early March was diagnosed with bilateral pulmonary emboli and has been started on Lovenox. In mid March she states that she was diagnosed with pneumonia despite not having any significant cough or sputum production and at that time was started on Levaquin. The patient states that this episode now is similar to how she felt in mid March. At that time, she also vomited and had fever. She denies any recent sick contacts. She denies any diarrhea. PAST MEDICAL HISTORY: 1. Recurrent non-small cell lung cancer. 2. History of melanoma. 3. Type 2 diabetes. 4. Hyperlipidemia. 5. History of breast cancer. 6. History of bilateral PE with RV strain. PAST SURGICAL HISTORY: 1. Tubal ligation. 2. Incisional hernia repair. 3. Partial left lung lobectomy. 4. Left breast surgery. 5. Appendectomy. 6. Wide excision for melanoma. MEDICATIONS: 1. Lovenox 120 mg subcutaneous q. 24 hours. 2. Atenolol 100 mg p.o. daily. 3. Tylenol 650 mg p.o. q. 6 hours p.r.n. pain. 4. Enalapril 20 mg p.o. daily. 5. Vitamin B12 at 500 mcg p.o. daily. 6. Celexa 20 mg p.o. daily. 7. Calcium plus D one tab p.o. twice daily. 8. Lovastatin 40 mg p.o. daily. 9. Folic acid 1 mg p.o. daily. 10. Glipizide 10 mg p.o. daily. 11. Potassium chloride 20 mEq p.o. daily. 12. Zofran 4 mg p.o. q. 4 hours p.r.n. nausea. 13. Magnesium oxide 400 mg p.o. daily. ALLERGIES: PENICILLIN. FAMILY HISTORY: Mom at the age of 90, she had hypertension. Dad at the age of 100 of old age. SOCIAL HISTORY: The patient is a nonsmoker. She does not drink alcohol. She worked as a middle school special education teacher. She is . She has 2 children. Her Agustin is her healthcare proxy. REVIEW OF SYSTEMS: A complete 11-system review of systems is obtained. Pertinent positives and negatives are as per HPI and in addition the patient does complain of very poor appetite recently though states her appetite has been poor for quite some time. She also admits to shortness of breath with exertion dating back to when she had her partial lobectomy; however, more recently after the diagnosis of pulmonary emboli, she does use oxygen on occasion. She does feel somewhat anxious regarding being ill again. The rest of the review of systems is negative. PHYSICAL EXAMINATION GENERAL: The patient is a well-developed elderly female, seen sitting up in the stretcher, appearing to be in no acute distress. VITAL SIGNS: Blood pressure 121/67, pulse 97, respirations 18, temp 97.2, O2 sat 93% on room air. HEENT: Pupils are equal and round. Extraocular muscles are intact. Oropharynx is clear. Oral mucosa is slightly dry. There is no submandibular, cervical, or supraclavicular adenopathy. Thyroid is not enlarged. No thyroid nodules are noted. PULMONARY: Lungs are clear to auscultation bilaterally. CARDIAC: Normal S1, S2. Regular rate and rhythm. I do not appreciate any murmurs. There is no lower extremity edema. ABDOMEN: Bowel sounds present. Abdomen is soft, nontender, nondistended. MUSCULOSKELETAL: There is no cyanosis or clubbing of the digits. There is full active range of motion of all 4 extremities. NEUROLOGIC: Cranial nerves II through XII are grossly intact. Sensation is intact to light touch throughout. Strength is 5/5 and symmetric in both upper and lower extremities bilaterally. PSYCH: The patient is alert. She is oriented x3. Affect appears appropriate. SKIN: Warm and dry. There are no rashes. LABORATORY DATA/DIAGNOSTIC STUDIES: WBC 8.2, hemoglobin 11.3, hematocrit 32, platelets 136. INR 1.02. Sodium 129, potassium 4.1, chloride 97, CO2 26, BUN 12, creatinine 0.8, glucose 336, lactic acid 1.7, calcium 9.7. Bilirubin 0.9, AST 35, ALT 23, alk phos 74. CPK 29, troponin 0.03. Albumin 3.8. Urinalysis reveals clear urine with a specific gravity of 1.016, 1+ ketones, 1+ leukocyte esterase, 1+ wbc, absent bacteria. Influenza A and B negative. Chest x-ray, question possible infiltrate at the left base. ASSESSMENT AND PLAN: Ms. Cee is a 72-year-old female who has history of lung cancer now status post recurrent on immunotherapy, type 2 diabetes, hyperlipidemia, and recent diagnosis of bilateral pulmonary emboli and possible pneumonia a couple of weeks ago, presents to the emergency room with complaints of fever, nausea, and vomiting. 1. Fever. The etiology of this is not completely clear. There is a suggestion of a possible pneumonia on chest x-ray; however as the patient truly had pneumonia just 2 weeks ago, it is possible that this could be residual findings on the imaging despite clinical improvement, as the patient denies any cough or sputum production. Her urine is not normal; however does not appear to be infected to me. Perhaps, she has a viral gastroenteritis given the vomiting. The patient will be admitted and her vital signs will be monitored. We will obtain a CT scan of the chest to evaluate for the possible pneumonia. Additionally, she will continue on ceftriaxone and azithromycin starting tomorrow as she received Levaquin in the emergency room. If the chest CT does not show any clear evidence of pneumonia, perhaps antibiotics can either be scaled back or discontinued altogether. Additionally, I will check a procalcitonin level. 2. Nausea and vomiting, question possible gastroenteritis. The patient did state that she had a small amount of emesis in the emergency room but currently looks quite well. She will have p.r.n. Zofran available. The patient does look slightly volume deplete given her tachycardia and hyponatremia. She has received 1 L bolus in the ER. We will continue on normal saline at 100 mL per hour. 3. Type 2 diabetes. The patient manages thus with glipizide. I am going to hold this for now. She will have fingersticks a.c. and h.s. with lispro sliding scale coverage given the vomiting. 4. Hypertension. The patient's blood pressure is under fair control. She will continue on her usual dose of atenolol and enalapril. 5. Recent diagnosis of bilateral pulmonary emboli. The patient will continue on Lovenox 120 mg subcutaneous q. 24 hours. 6. Hyperlipidemia. We will continue statin. 7. DVT prophylaxis. According to the Adult Thrombosis Prophylaxis Risk Factor Assessment Guide, the patient has a total risk factor score of 8 making her the highest risk. Lovenox will be utilized as DVT prophylaxis. 8. Code status is full. TIME SPENT: Sixty-five minutes was spent admitting this patient. [id number]/[facility] #: [id number] ROXY
[2017-05-01] MEDS: Ondansetron INJ* 2 MG/ML VIAL IV PRN (17:42)
[2017-05-02] MEDS: Ondansetron INJ* 2 MG/ML VIAL IV PRN ×2 (00:59→08:02)
[2017-05-02] MEDS ORDERED: Azithromycin IV(*) 500 MG in NS 0.9% 250 ML* 250 ML IVPB SCH (01:00)
[2017-05-02] MEDS: NS 0.9% 1000 ML* 1,000 ML IV SCH (01:57)
[2017-05-02] MEDS ORDERED: cefTRIAXone(*) 1 GM in NS 0.9% 50 ML* 50 ML IVPB SCH (02:00)
[2017-05-02 05:25] LABS: ABS Basophils 0 10^3/ul (0-0.2); ABS Eosinophils 0 10^3/ul (0-0.6); ABS Lymphocytes 0.7 10^3/ul (1.0-4.8); ABS Monocytes 1.1 10^3/ul (0-0.8); ABS Neutrophils 3.9 10^3/ul (1.5-7.7); ABS Nucleated RBC 0 10^3/ul; Eosinophil % 0.4 % (0-6); Hematocrit 26 % (35-47); Hemoglobin 9.6 g/dl (12.0-16.0); Lymphocyte % 12.2 % (25-47); Mean Corpuscular HGB Conc 36 g/dl (31-36); Mean Corpuscular Hemoglobin 36 pg (27-31); Mean Corpuscular Volume 98 fL (80-97); Mean Platelet Volume 7 um3 (7.4-10.4); Nucleated Red Blood Cells % 0.1; Platelet Count 121 10^3/ul (150-450); Red Cell Distribution Width 16 % (10.5-15); White Blood Count 5.8 10^3/ul (3.5-10.8)
[2017-05-02] MEDS: Enoxaparin(*) 150 MG/ML 1 ML SYRINGE SUBCUT SCH (08:05)
[2017-05-02] MEDS: Insulin LISPRO* 1 UNITS UNIT SUBCUT SCH ×2 (08:08→12:27)
[2017-05-02] MEDS: Atenolol TAB* 50 MG PO SCH (08:42)
[2017-05-02 08:43] VITALS: BP 150/82
[2017-05-02] MEDS: Citalopram TAB* 10 MG PO SCH (08:43)
[2017-05-02] MEDS: Atorvastatin* 10 MG TAB PO SCH (08:43)
[2017-05-02] MEDS: Enalapril TAB* 20 MG PO SCH (08:43)
== END 2017-05-02 14:15 | disposition home or self-care (01) ==
LOC: ED 21:41 → MEDTELE 05-01 02:51
PROVIDERS: ADMIT Hospitalist; ATTEND Internal Medicine Hematology & Oncology
DX: R50.9 Fever, unspecified (principal); R11.2 Nausea with vomiting, unspecified; N39.0 Urinary tract infection, site not specified; E11.9 Type 2 diabetes mellitus without complications; I10 Essential (primary) hypertension; I26.99 Other pulmonary embolism without acute cor pulmonale; E78.5 Hyperlipidemia, unspecified; I25.10 Atherosclerotic heart disease of native coronary artery without angina pectoris; I44.4 Left anterior fascicular block; Z85.118 Personal history of other malignant neoplasm of bronchus and lung; Z85.3 Personal history of malignant neoplasm of breast; Z79.899 Other long term (current) drug therapy; Z79.01 Long term (current) use of anticoagulants
CPT/HCPCS: 36415; 71045; 71250; 80053; 81003; 81015; 82550; 83605; 84145; 84484; 85025; 85610; 85730; 87040; 87086; 87502; 93005; 96365; 96366; 96367; 96372; 96375; 96376; 99225; 99284; A9270-GY; G0378; J0456; J0696; J1650; J2405

== ENCOUNTER 2018-02-14 13:42 | Emergency (ER) | payer MEDICARE, BC ==
[2018-02-14] MEDS ORDERED: NS 0.9% 1000 ML* 1,000 ML IV ONE (14:03)
--- NOTE | 2018-02-14 14:20 | ED ---
Syncope/Near Syncope - HPI Summary HPI Summary: This patient is a 73 year old F brought in by EMS to [facility] accompanied by her s/p near syncope and fall that occurred today [employer]BARIUM CURATOR. She states this AM she began to feel fatigued, dizzy, and weak, which is not uncommon for her. She was at the pharmacy waiting in line when she fell. She was in line with her and he states there was no full LOC. After a short time she felt better. She has an old bruise on the right side of her face that is two weeks old, she states she tripped. The patient rates the pain 0/10 in severity. Patient reports mild nausea that resolved. Patient denies HEART, dysuria, hematuria , SOB, CP, and v/d. She is a patient of Dr. Spencer and has lung CA. She is on chemotherapy and has an appointment on the to be hydrated. Last chemo treatment was 4 days ago. - History Of Current Complaint Time Seen by Provider: 02/14/18 14:02 Hx Obtained From: Patient, Family/Marketing Information Coordinator Onset/Duration: Resolved Timing: Minutes Context: Witnessed Activity At Onset: Other Associated Head Trauma: No Alleviating Factor(s): Spontaneous Resolution Associated Signs And Symptoms: Lightheadedness, Weakness - Allergies/Home Medications Allergies/Adverse Reactions: Allergies Allergy/AdvReac Type Severity Reaction Status Date / Time Penicillins Allergy Fever Verified 02/14/18 14:01 PMH/Surg Hx/FS Hx/Imm Hx Endocrine/Hematology History: Reports: Hx Diabetes - Type II Denies: Hx Systemic Lupus Erythematosus, Hx Thyroid Disease, Hx Anemia Cardiovascular History: Reports: Hx Coronary Artery Disease - CHOLESTEROL CONTROL WITH MEDS, Hx Hypercholesterolemia, Hx Hypertension Denies: Hx Congestive Heart Failure, Hx Pacemaker/ICD Respiratory History: Reports: Other Respiratory Problems/Disorders - LUNG CA- LEFT GI History: Reports: Other GI Disorders - OCCASIONAL INDIGESTION Denies: Hx Jaundice History: Denies: Hx Dialysis, Hx Renal Disease Musculoskeletal History: Reports: Hx Arthritis - BILATERAL KNEES Denies: Hx Rheumatoid Arthritis, Hx Osteoporosis Sensory History: Reports: Hx Cataracts - BILAT Denies: Hx Contacts or Glasses, Hx Hearing Aid Opthamlomology History: Reports: Hx Cataracts - BILAT Denies: Hx Contacts or Glasses Psychiatric History: Denies: Hx Panic Disorder - Cancer History Cancer Type, Location and Year: Melanoma, Breast 2013, Lung 2013 Hx Chemotherapy: Yes - BREAST Hx Radiation Therapy: Yes - BREAST - Surgical History Surgery Procedure, Year, and Place: MELANOMA REMOVED FROM LEFT ANKLE AND BACK, OFFICE. 2000 APPENDECTOMY, [facility] [place]. 2000 & FEW YEARS LATER, VENTRAL HERNIA REPAIR AT APPENDECTOMY SITE, [facility] [place], lumpectomy left 2012. LL lobectomy 05/04/14. NEEDLE BIOPSY LEFT BREAST 03/12/2015. BILATERAL TUBAL LIGATION, [facility] [place] Hx Anesthesia Reactions: No Infectious Disease History: No Infectious Disease History: Denies: Traveled Outside the [place] in Last 30 Days - Family History Known Family History: Positive: Other - no cancer hx, no malignant hyperthermia hx, no anesthesia reaction hx Negative: Seizure Disorder - Social History Alcohol Use: Occasionally Alcohol Amount: 2 MONTHLY Substance Use Type: Reports: None Hx Tobacco Use: No Smoking Status (MU): Never Smoked Tobacco Review of Systems Positive: Fatigue Negative: Chest Pain Negative: Shortness Of Breath Positive: Nausea. Negative: Vomiting, Diarrhea Negative: dysuria, hematuria Neurological: Other - dizzy and weak Positive: Syncope - near not full . Negative: Headache All Other Systems Reviewed And Are Negative: Yes Physical Exam - Summary Physical Exam Summary: Appearance: Well appearing, no pain distress Skin: warm, dry, reflects adequate perfusion, there is a port in the right chest and ecchymosis around the right eye that appears old Head/face: normal Eyes: EOMI, KALEE ENT: mucous membranes moist Neck: supple, non-tender, no JVD Respiratory: CTA, breath sounds present Cardiovascular: RRR, pulses symmetrical Abdomen: non-tender, soft Bowel Sounds: present Musculoskeletal: normal, strength/ROM intact Neuro: normal, sensory motor intact, A&Ox3 Triage Information Reviewed: Yes Vital Signs On Initial Exam: Initial Vitals Temp Pulse Resp BP Pulse Ox 98 F 66 21 108/65 98 02/14/18 14:05 02/14/18 14:05 02/14/18 14:05 02/14/18 14:05 02/14/18 14:05 Vital Signs Reviewed: Yes Diagnostics - Vital Signs Vital Signs Temp Pulse Resp BP Pulse Ox 02/14/18 14:05 98 F 66 21 108/65 98 - Laboratory Result Diagrams: 02/14/18 14:20 02/14/18 14:20 Lab Statement: Any lab studies that have been ordered have been reviewed, and results considered in the medical decision making process. - Radiology CXR Radiology Interpretation Completed By: Radiologist Summary of Radiographic Findings: , ELEVATED LEFT HEMIDIAPHRAGM WITH CHRONIC CHANGES IN THE LEFT LUNG BASE. NO. DEFINITE PNEUMONIA IS IDENTIFIED. ED physician has reviewed this radiology report - EKG 1424 Cardiac Rate: NL EKG Rhythm: Sinus Rhythm - at [address] Segment: Normal Summary of EKG Findings: LAD Re-Evaluation - Re-Evaluation First Eval Re-Evaluation Time: 16:13 Change: Improved Comment: Patient states she feels like her baseline and would like to go home. The patient had a BM while collecting her urine so the sample could not be collected. Course/Dx Course Of Treatment: Patient with history of lung cancer on chemotherapy who routinely gets dehydrated following chemotherapy. She felt weak and lightheaded with near-syncope at the pharmacy today. There is no injury. She was hydrated here with full relief. She was offered admission/observation the hospital and patient declined. She is feeling much better and will follow-up on Thursday with her oncologist as scheduled. Assessment/Plan: Nurse's note reviewed. - Diagnoses Differential Diagnosis/HQI/PQRI: Positive: Dysrhythmia, Hypoglycemia, Hypovolemia, Metabolic Reaction, Vasovagal Episode Provider Diagnoses: Dehydration, Near syncope, History of lung cancer Discharge - Sign-Out/Discharge Documenting (check all that apply): Patient Departure - Discharge Plan Condition: Improved Disposition: HOME Patient Education Materials: Dehydration (ED) Referrals: Saundra Escamilla MD [Primary Care Provider] - Additional Instructions: Stay well-hydrated. Follow-up on Thursday as scheduled for more IV hydration. Return if weakness, fever, new symptoms, passing out, worse or other concerns. - Billing Disposition and Condition Condition: IMPROVED Disposition: Home - Attestation Statements Document Initiated by Scribe: Yes Documenting Scribe: Ricky Bianchi Provider For Whom Yana is Documenting (Include Credential): Lazaro Peterson MD Scribe Attestation: Ricky Andersen scrjesused for Lazaro Peterson MD on 02/14/18 at 1839. Scribe Documentation Reviewed: Yes Provider Attestation: The documentation as recorded by the Ricky gentile accurately reflects the service I personally performed and the decisions made by Lazaro puente MD Status of Scribe Document: Viewed
[2018-02-14 14:43] LABS: ABS Basophils 0 10^3/ul (0-0.2); ABS Eosinophils 0 10^3/ul (0-0.6); ABS Lymphocytes 0.8 10^3/ul (1.0-4.8); ABS Monocytes 0.1 10^3/ul (0-0.8); ABS Neutrophils 11.4 10^3/ul (1.5-7.7); ABS Nucleated RBC 0 10^3/ul; Eosinophil % 0 %; Hematocrit 37 % (35-47); Hemoglobin 12.7 g/dl (12.0-16.0); Lymphocyte % 6.8 %; Mean Corpuscular HGB Conc 34 g/dl (31-36); Mean Corpuscular Hemoglobin 30 pg (27-31); Mean Corpuscular Volume 89 fL (80-97); Mean Platelet Volume 8.4 fL (7.4-10.4); Nucleated Red Blood Cells % 0; Platelet Count 162 10^3/ul (150-450); Red Blood Count 4.17 10^6/ul (4.00-5.40); Red Cell Distribution Width 17 % (10.5-15); White Blood Count 12.4 10^3/ul (3.5-10.8)
[2018-02-14 14:49] LABS: INR 0.98 (0.77-1.02)
[2018-02-14 15:00] LABS: Albumin 3.8 g/dL (3.2-5.2); Albumin/Globulin Ratio 1.4 (1-3); BUN/Creatinine Ratio 34.7 (8-20); Calcium 9.2 mg/dL (8.6-10.3); EGFR Non-African American 57.3 (>60); Globulin 2.7 g/dL (2-4); Magnesium 2.1 mg/dL (1.9-2.7); Potassium 3.8 mmol/L (3.5-5.0); Total Bilirubin 0.7 mg/dL (0.2-1.0); Total Protein 6.5 g/dL (6.4-8.9)
[2018-02-14 15:17] LABS: TSH (Thyroid Stimulating Horm) 2.08 mcIU/mL (0.34-5.60)
[2018-02-14 16:25] VITALS: BP 136/71
== END 2018-02-14 16:27 | disposition home or self-care (01) ==
LOC: ED 13:42
DX: E86.0 Dehydration (principal); R55 Syncope and collapse; Z85.118 Personal history of other malignant neoplasm of bronchus and lung; I25.10 Atherosclerotic heart disease of native coronary artery without angina pectoris; E78.00 Pure hypercholesterolemia, unspecified; I10 Essential (primary) hypertension; Z85.3 Personal history of malignant neoplasm of breast; Z85.820 Personal history of malignant melanoma of skin; E11.9 Type 2 diabetes mellitus without complications; Z88.0 Allergy status to penicillin
CPT/HCPCS: 36415; 71045; 80053; 83605; 83735; 84443; 84484; 85025; 85610; 87040; 93005; 96360; 99283

== ENCOUNTER 2018-11-25 16:26 | Inpatient (IN) | payer MEDICARE, BC ==
[2018-11-25] MEDS ORDERED: Ondansetron INJ* 2 MG/ML VIAL IV PRN (17:40)
[2018-11-25] MEDS ORDERED: oxyCODONE/Acetamin 5/325 MG* TAB PO PRN (17:40)
[2018-11-25] MEDS ORDERED: ALPRAZolam TAB* 0.25 MG PO PRN (17:45)
[2018-11-25] MEDS ORDERED: Dextrose 50% VIAL 50 ml IV PUSH PRN (17:48)
[2018-11-25 21:07] LABS: INR 3.49 (0.82-1.09)
[2018-11-25] MEDS: cefTAZidime 2 GM in NS 0.9% 100 ML* 100 ML IVPB SCH (22:50)
[2018-11-25] MEDS: NS 0.9% 1000 ML** 1,000 ML IV SCH (22:50)
[2018-11-25] MEDS: Insulin LISPRO* 1 UNITS UNIT SUBCUT SCH (22:55)
[2018-11-25] MEDS: Fluconazole 100 MG TAB* TAB PO SCH (22:56)
[2018-11-26] MEDS: Acetaminophen TAB* 325 MG PO PRN ×2 (01:39→15:28)
[2018-11-26] MEDS: cefTAZidime 2 GM in NS 0.9% 100 ML* 100 ML IVPB SCH ×3 (06:58→21:46)
[2018-11-26] MEDS: NS 0.9% 1000 ML** 1,000 ML IV SCH ×2 (06:58→13:16)
[2018-11-26] MEDS: Citalopram TAB* 20 MG PO SCH (09:28)
[2018-11-26] MEDS: Insulin LISPRO* 1 UNITS UNIT SUBCUT SCH ×4 (09:28→21:46)
[2018-11-26] MEDS: Cyanocobalamin TAB* 500 MCG PO SCH (09:28)
[2018-11-26 10:17] LABS: Hematocrit 33 % (35-47); Hemoglobin 11.3 g/dL (12.0-16.0); Mean Corpuscular HGB Conc 35 g/dL (31-36); Mean Corpuscular Hemoglobin 30 pg (27-31); Mean Corpuscular Volume 87 fL (80-97); Mean Platelet Volume 7.9 fL (7.4-10.4); Platelet Count 115 10^3/uL (150-450); Red Blood Count 3.75 10^6 /uL (3.70-4.87); Red Cell Distribution Width 16 % (10-15); White Blood Count 1.1 10^3/uL (3.5-10.8)
[2018-11-26 10:34] LABS: Albumin/Globulin Ratio 1.1 (1-3); BUN/Creatinine Ratio 16.5 (8-20); Calcium 8.5 mg/dL (8.6-10.3); EGFR African American 85.8 (>60); EGFR Non-African American 70.9 (>60); Globulin 2.7 g/dL (2-4); Potassium 3.7 mmol/L (3.5-5.0); Total Bilirubin 0.8 mg/dL (0.2-1.0); Total Protein 5.7 g/dL (6.4-8.9)
[2018-11-26 10:51] LABS: ABS Lymphocytes 0.4 10^3/ul (1.0-4.8); ABS Monocytes 0.5 10^3/ul (0-0.8); ABS Neutrophils 0.1 10^3/ul (1.5-7.7); Eosinophil % 0.2 %; Lymphocyte % 38.4 %; Nucleated Red Blood Cells % 0.5
--- NOTE | 2018-11-26 12:07 | PN ---
Progress Note - Progress Note Date of Service: 11/26/18 SOAP: Subjective: [Saundra reports feeling better this morning. No cough, SOB. She was having some LLQ abd discomfort, but that has resolved. No diarrhea, but some loose stool. No nausea this morning, but appetite is poor. Mouth feels better.] Objective: [ Vital Signs: Temp Pulse Resp BP Pulse Ox 100.2 F 93 24 125/56 96 11/26/18 11:05 11/26/18 11:05 11/26/18 11:05 11/26/18 11:05 11/26/18 11:05 Acetaminophen (Tylenol Tab*) 650 mg PO Q4H PRN PRN Reason: PAIN - MILD Last Admin: 11/26/18 01:39 Dose: 650 mg Alprazolam (Xanax Tab*) 0.25 mg PO BID PRN PRN Reason: ANXIETY Citalopram Hydrobromide (Celexa Tab*) 20 mg PO [facility] Last Admin: 11/26/18 09:28 Dose: 20 mg Cyanocobalamin (Vitamin B12 Tab*) 500 mcg PO [facility] Last Admin: 11/26/18 09:28 Dose: 500 mcg Dextrose (Dextrose 50% Vial 50 Ml*) 25 ml IV PUSH .FOR FS < 60 - SS PRN PRN Reason: FS < 60 Fluconazole (Diflucan 100 Mg Tab*) 200 mg PO 2100 REPLACED BY [facility] Last Admin: 11/25/18 22:56 Dose: 200 mg Sodium Chloride (Ns 0.9% 1000 Ml) 1,000 mls @ 125 mls/hr IV PER RATE REPLACED BY [facility] Last Admin: 11/26/18 06:58 Dose: 125 mls/hr Ceftazidime 2 gm/ Sodium (Chloride) 100 mls @ 200 mls/hr IVPB Q8H REPLACED BY [facility] Last Admin: 11/26/18 06:58 Dose: 200 mls/hr Insulin Human Lispro (Humalog*) 0 units [facility] REPLACED BY [facility]; Protocol Last Admin: 11/26/18 09:28 Dose: Not Given Ondansetron HCl (Zofran Inj*) 4 mg IV Q4H PRN PRN Reason: NAUSEA/VOMITING Oxycodone/Acetaminophen (Percocet 5/325 Tab*) 1 tab PO Q4H PRN PRN Reason: PAIN - MODERATE Last Admin: 11/26/18 01:40 Dose: 1 tab Laboratory Results - last 24 hr 11/25/18 11/25/18 11/25/18 20:50 20:50 22:49 WBC RBC Hgb Hct MCV MCH MCHC RDW Plt Count MPV Neut % (Auto) Lymph % (Auto) Cameron % (Auto) Eos % (Auto) Baso % (Auto) Absolute Neuts (auto) Absolute Lymphs (auto) Absolute Monos (auto) Absolute Eos (auto) Absolute Basos (auto) Absolute Nucleated RBC Neutrophils % Lymphocytes % Monocytes % Nucleated RBC % Normal RBC Morphology INR (Anticoag Therapy) 3.49 H Sodium Potassium Chloride Carbon Dioxide Anion Gap BUN Creatinine Est GFR ( Amer) Est GFR (Non-Af Amer) BUN/Creatinine Ratio Glucose POC Glucose (mg/dL) 168 H Lactic Acid 1.4 Calcium Total Bilirubin AST ALT Alkaline Phosphatase Total Protein Albumin Globulin Albumin/Globulin Ratio 11/26/18 11/26/18 11/26/18 08:20 09:50 09:50 WBC 1.1 L RBC 3.75 Hgb 11.3 L Hct 33 L MCV 87 MCH 30 MCHC 35 RDW 16 H Plt Count 115 L MPV 7.9 Neut % (Auto) 14.1 Lymph % (Auto) 38.4 Cameron % (Auto) 47.1 Eos % (Auto) 0.2 Baso % (Auto) 0.2 Absolute Neuts (auto) 0.1 L Absolute Lymphs (auto) 0.4 L Absolute Monos (auto) 0.5 Absolute Eos (auto) 0.0 Absolute Basos (auto) 0.0 Absolute Nucleated RBC 0.0 Neutrophils % 15.0 Lymphocytes % 43.0 Monocytes % 42.0 Nucleated RBC % 0.5 Normal RBC Morphology Normal INR (Anticoag Therapy) Sodium 134 L Potassium 3.7 Chloride 105 Carbon Dioxide 25 Anion Gap 4 BUN 13 Creatinine 0.79 Est GFR ( Amer) 85.8 Est GFR (Non-Af Amer) 70.9 BUN/Creatinine Ratio 16.5 Glucose 144 H POC Glucose (mg/dL) 79 Lactic Acid Calcium 8.5 L Total Bilirubin 0.80 AST 9 L ALT 8 Alkaline Phosphatase 59 Total Protein 5.7 L Albumin 3.0 L Globulin 2.7 Albumin/Globulin Ratio 1.1 Exam: Gen: Relatively well appearing 73 yo female in NAD and accompanied by her HEENT: MMM, no m/r/g Resp: crackles in L lung base Abd: soft and nonTTP Ext: no edema Skin: no rashes] Assessment: [This is a 73 yo female with metastatic NSCLC who recently resumed chemotherapy after progressive disease off of therapy for the last several months. She was admitted yesterday with neutropenic fever, no obvious source of infection noted at this time. ] Plan: [1. Neutropenic fever - cont ceftaz - blood and urine cultures pending - no obvious new infiltrate on CXR, crackles in L lung base but known mass in this region 2. Mucositis/thrush - nl oral exam today - cont fluconazole and add MMW prn 3. DM - cont SS insulin during hospital stay 4. h/o PE - anticoagulated with Coumadin, INR slightly supratherapeutic - resume Coumadin tomorrow at 4 mg (usual home dose 5 mg daily) Dispo: cont inpatient stay until ANC >1000 ]
[2018-11-26] MEDS: Magic Mouth Was-BEN/MAAL/LIDO SWISH SPIT SCH ×3 (13:16→21:47)
[2018-11-26] MEDS: Fluconazole 100 MG TAB* TAB PO SCH (21:46)
[2018-11-27 00:27] LABS: Urine Appearance Cloudy; Urine Bacteria 1+ (Absent); Urine Bilirubin Negative (Negative); Urine Blood 1+ (Negative); Urine Color Yellow; Urine Glucose 1+(50 mg/dL) (Negative); Urine Granular Casts Present (Absent); Urine Ketones Trace (Negative); Urine Nitrite Negative (Negative); Urine Protein 1+(30 mg/dL) (Negative); Urine Red Blood Cell Trace(0-2/hpf) (Absent); Urine Specific Gravity 1.029 (1.010-1.030); Urine Squamous Epithelial Cell Present (Absent); Urine Urobilinogen Negative (Negative); Urine White Blood Cell 1+(6-10/hpf) (Absent)
[2018-11-27] MEDS: cefTAZidime 2 GM in NS 0.9% 100 ML* 100 ML IVPB SCH ×3 (06:35→21:16)
[2018-11-27 07:03] LABS: Hematocrit 29 % (35-47); Hemoglobin 10.5 g/dL (12.0-16.0); Mean Corpuscular HGB Conc 36 g/dL (31-36); Mean Corpuscular Hemoglobin 31 pg (27-31); Mean Corpuscular Volume 86 fL (80-97); Mean Platelet Volume 8.1 fL (7.4-10.4); Platelet Count 105 10^3/uL (150-450); Red Blood Count 3.42 10^6 /uL (3.70-4.87); Red Cell Distribution Width 16 % (10-15); White Blood Count 2.5 10^3/uL (3.5-10.8)
[2018-11-27 07:13] LABS: Albumin 2.7 g/dL (3.2-5.2); Albumin/Globulin Ratio 1.1 (1-3); BUN/Creatinine Ratio 11.4 (8-20); Calcium 8.2 mg/dL (8.6-10.3); EGFR African American 98.7 (>60); EGFR Non-African American 81.6 (>60); Globulin 2.5 g/dL (2-4); Potassium 3.2 mmol/L (3.5-5.0); Total Bilirubin 0.6 mg/dL (0.2-1.0); Total Protein 5.2 g/dL (6.4-8.9)
[2018-11-27] MEDS: Insulin LISPRO* 1 UNITS UNIT SUBCUT SCH ×4 (08:20→21:10)
[2018-11-27] MEDS ORDERED: Acetaminophen TAB* 325 MG PO PRN (08:41)
[2018-11-27] MEDS: Cyanocobalamin TAB* 500 MCG PO SCH (08:46)
[2018-11-27] MEDS: Magic Mouth Was-BEN/MAAL/LIDO SWISH SPIT SCH ×5 (08:46→21:12)
[2018-11-27] MEDS: Citalopram TAB* 20 MG PO SCH (08:46)
[2018-11-27] MEDS: Acetaminophen TAB* 325 MG PO PRN (08:46)
[2018-11-27 09:17] LABS: ABS Lymphocytes 0.7 10^3/ul (1.0-4.8); ABS Monocytes 0.8 10^3/ul (0-0.8); Eosinophil % 0.2 %; Lymphocyte % 27.4 %; Nucleated Red Blood Cells % 0.8
[2018-11-27] MEDS: KCL 20 MEQ/100 ML IVPREMIX* 20 MEQ/100 ML BAG IV SCH ×2 (09:39→11:50)
[2018-11-27] MEDS ORDERED: Warfarin TAB(*) 4 MG PO SCH (17:00)
[2018-11-27] MEDS: Fluconazole 100 MG TAB* TAB PO SCH (21:09)
[2018-11-28 04:34] LABS: Hematocrit 29 % (35-47); Hemoglobin 10.2 g/dL (12.0-16.0); Mean Corpuscular HGB Conc 35 g/dL (31-36); Mean Corpuscular Hemoglobin 30 pg (27-31); Mean Corpuscular Volume 87 fL (80-97); Mean Platelet Volume 7.8 fL (7.4-10.4); Platelet Count 112 10^3/uL (150-450); Red Blood Count 3.39 10^6 /uL (3.70-4.87); Red Cell Distribution Width 16 % (10-15); White Blood Count 4.4 10^3/uL (3.5-10.8)
[2018-11-28 04:40] LABS: INR 4.15 (0.82-1.09)
[2018-11-28 04:49] LABS: BUN/Creatinine Ratio 9.7 (8-20); Calcium 8.1 mg/dL (8.6-10.3); EGFR African American 113.5 (>60); EGFR Non-African American 93.8 (>60); Potassium 3.4 mmol/L (3.5-5.0)
[2018-11-28] MEDS: cefTAZidime 2 GM in NS 0.9% 100 ML* 100 ML IVPB SCH (05:15)
[2018-11-28] MEDS: NS 0.9% 1000 ML** 1,000 ML IV SCH (05:15)
[2018-11-28 05:33] LABS: ABS Monocytes 0.8 10^3/ul (0-0.8); ABS Neutrophils 2.6 10^3/ul (1.5-7.7); Eosinophil % 0.1 %; Lymphocyte % 21.8 %; Nucleated Red Blood Cells % 0.3
[2018-11-28] MEDS: Insulin LISPRO* 1 UNITS UNIT SUBCUT SCH ×2 (08:33→12:39)
[2018-11-28] MEDS: Citalopram TAB* 20 MG PO SCH (08:33)
[2018-11-28] MEDS: Cyanocobalamin TAB* 500 MCG PO SCH (08:33)
[2018-11-28] MEDS: Magic Mouth Was-BEN/MAAL/LIDO SWISH SPIT SCH ×2 (08:34→12:39)
[2018-11-28 12:55] VITALS: BP 142/83
--- NOTE | 2019-01-02 14:33 | DS ---
DISCHARGE SUMMARY: DATE OF ADMISSION: 11/25/18 DATE OF DISCHARGE: 11/28/18 REASON FOR ADMISSION: Febrile neutropenia. HISTORY OF PRESENT ILLNESS: Saundra Cee is a 73-year-old female with a previous history of melanoma, breast cancer and then lung cancer diagnosed in 2015. She has had a number of recurrences of lung cancer and had previously been on chemotherapy and an immunotherapy on a number of occasions, then showing recent progression and was resumed on Taxotere chemotherapy that she has previously had a good response to just recently. Chemotherapy was 8 days prior to this admission. She developed abdominal pain and mouth sores along with nausea without vomiting. She was found to have thrush and a fever to 100.8. In the clinic, her ANC was 100, platelet count 112,000. The patient had a blood cultures drawn in the office and then was started on a broad spectrum antibiotics with ceftazidime 2 g q.8 hours along with 2 L of normal saline. Urinalysis was unremarkable. Chest x-ray was without significant infiltrate. Lactic acid was also followed. The patient received Diflucan as well for thrush 200 mg daily x5. She continued on her antinausea and antianxiety medications along with her PPIs. She has been on Coumadin for previous DVT/PE. At the time of admission, as noted above, ANC was 100 during the hospitalization, this rhonda to 1000 on 11/27/18 and 2600 on 11/28/18. Three sets of blood cultures x2 were obtained on 11/25/18, 11/26/18 and 11/27/18 and all remained without significant growth. Initial chemistry studies were essentially unremarkable. Lactic acid had been 1.4. The patient also needed a potassium repletion during the hospitalization. Her INR was supratherapeutic and Coumadin was held and then resumed at a lower dose on 11/27/18. Diabetes mellitus was well controlled. She continued to have fever through 11/27/18, but then was afebrile as of 11/28/18 and able to be discharged to home. DISCHARGE DIAGNOSES: 1. Febrile neutropenia without obvious source. 2. Metastatic lung cancer, on chemotherapy. 3. Diabetes mellitus. 4. History of breast cancer. 5. History of melanoma. 6. History of deep vein thrombosis/pulmonary embolism, on anticoagulation. MEDICATIONS AT THE TIME OF DISCHARGE: Included: 1. Fluconazole 100 mg daily to take for another 7 days. 2. KCl 20 mEq daily. 3. Coumadin 3 mg daily. 4. Glipizide 10 mg daily. 5. Calcium and vitamin D. 6. Atenolol 50 mg daily. 7. Zofran 4 mg q.4 hours p.r.n. nausea. 8. Magnesium oxide daily. 9. Compazine 10 mg q.6 hours p.r.n. 10. Xanax 0.25 mg b.i.d. p.r.n. anxiety. 11. Citalopram 20 mg daily. 12. Cyanocobalamin, B12 one tablet daily. The patient was discharged to home in stable condition. She was asked to follow up in our office in 4 to 7 days' time and at that time to have a CBC and BMP evaluated and also recognizing that she would likely need further hydration when seen in the office on the next office visit. [id number] #: [id number]
== END 2018-11-28 13:45 | disposition home or self-care (01) | DRG 809 ==
LOC: EDSTATUS 19:33 → MED 19:39
PROVIDERS: ADMIT Internal Medicine Hematology & Oncology; ATTEND Internal Medicine Hematology & Oncology
DX: D70.9 Neutropenia, unspecified (principal); B37.0 Candidal stomatitis; C78.2 Secondary malignant neoplasm of pleura; C34.32 Malignant neoplasm of lower lobe, left bronchus or lung; J98.11 Atelectasis; K12.30 Oral mucositis (ulcerative), unspecified; R50.81 Fever presenting with conditions classified elsewhere; E11.9 Type 2 diabetes mellitus without complications; I10 Essential (primary) hypertension; E78.00 Pure hypercholesterolemia, unspecified; Z88.0 Allergy status to penicillin; Z88.8 Allergy status to other drugs, medicaments and biological substances; Z79.01 Long term (current) use of anticoagulants; Z79.899 Other long term (current) drug therapy; Z82.49 Family history of ischemic heart disease and other diseases of the circulatory system; Z80.8 Family history of malignant neoplasm of other organs or systems; Z79.84 Long term (current) use of oral hypoglycemic drugs; Z85.820 Personal history of malignant melanoma of skin; Z86.711 Personal history of pulmonary embolism; Z87.891 Personal history of nicotine dependence; Z85.3 Personal history of malignant neoplasm of breast
CPT/HCPCS: 36415; 71046; 80048; 80053; 81003; 81015; 83605; 83735; 85025; 85060; 85610; 87040; 87086; 96360; 96361; 96365; 99215; 99223; 99232; A9270-GY; G0463; G8978-GP-CJ; G8979-GP-CI; J0713; J1642; J3480

== ENCOUNTER 2018-12-15 09:52 | Emergency (ER) | payer MEDICARE, BC ==
--- NOTE | 2018-12-15 10:42 | ED ---
GI/ HPI - HPI Summary HPI Summary: Pt is a 73 y/o F presenting to the ED with a chief complaint of nausea and vomiting. She states she last had a chemotherapy appointment on , , and felt fine afterwards. Yesterday, 12/14/18, she began experiencing nausea and vomiting that has not stopped. She also notes decreased appetite. She denies diarrhea and fevers. She was given Zofran last time she was here after her first chemotherapy treatment, but she did not take it today. Dr. Spencer is her oncologist. - History of Current Complaint Chief Complaint: EDNauseaVomitDiarrh Time Seen by Provider: 12/15/18 10:01 Stated Complaint: GENERAL ILLNESS PER EMS Hx Obtained From: Patient Onset/Duration: Started Days Ago, Still Present Timing: Constant, Lasting Days Severity: Moderate Current Severity: Moderate Pain Intensity: 0 Location of Pain: None Associated Signs and Symptoms: Positive: Nausea, Vomiting, Change in Appetite. Negative: Diarrhea, Fever Aggravating Factor(s): Nothing Alleviating Factor(s): Nothing - Additional Pertinent History Primary Care Physician: [id number] - Allergy/Home Medications Allergies/Adverse Reactions: Allergies Allergy/AdvReac Type Severity Reaction Status Date / Time Penicillins Allergy Fever Verified 11/04/18 09:20 Home Medications: Home Medications Calcium Carbonate/Vitamin D3 [Calcium/Vitamin D] 1 cap PO DAILY 12/15/18 [ History Confirmed 12/15/18] Dexamethasone TAB* [Decadron TAB*] 4 mg PO DAILY 12/15/18 [History Confirmed ] Docusate CAP* [Colace Cap*] 100 mg PO BEDTIME PRN 12/15/18 [History Confirmed ] Loperamide CAP* [Imodium CAP*] 2 mg PO Q4H PRN 12/15/18 [History Confirmed 12/15] Magic Mouth Was-YAZMIN/MAAL/LIDO* 10 ml SWISH SPIT QID 12/15/18 [History Confirmed 12/15/18] Omeprazole CAP (NF) [Prilosec CAP* 20 MG] 20 mg PO DAILY 12/15/18 [History Confirmed 12/15/18] Prochlorperazine TAB* [Compazine Tab*] 10 mg PO Q6H PRN 12/15/18 [History Confirmed 12/15/18] Rosuvastatin (NF) [Crestor (NF)] 10 mg PO DAILY 12/15/18 [History Confirmed ] Warfarin TAB(*) [Coumadin TAB(*)] 3 mg PO DAILY 12/15/18 [History Confirmed ] PMH/Surg Hx/FS Hx/Imm Hx Previously Healthy: Yes Endocrine/Hematology History: Reports: Hx Diabetes - Type II Denies: Hx Systemic Lupus Erythematosus, Hx Thyroid Disease, Hx Anemia Cardiovascular History: Reports: Hx Coronary Artery Disease - CHOLESTEROL CONTROL WITH MEDS, Hx Hypercholesterolemia, Hx Hypertension Denies: Hx Congestive Heart Failure, Hx Pacemaker/ICD Respiratory History: Reports: Other Respiratory Problems/Disorders - LUNG CA- LEFT GI History: Reports: Other GI Disorders - OCCASIONAL INDIGESTION Denies: Hx Jaundice History: Denies: Hx Dialysis, Hx Renal Disease Musculoskeletal History: Reports: Hx Arthritis - BILATERAL KNEES Denies: Hx Rheumatoid Arthritis, Hx Osteoporosis Sensory History: Reports: Hx Cataracts - BILAT Denies: Hx Contacts or Glasses, Hx Hearing Aid Opthamlomology History: Reports: Hx Cataracts - BILAT Denies: Hx Contacts or Glasses Psychiatric History: Denies: Hx Panic Disorder - Cancer History Cancer Type, Location and Year: Melanoma, Breast 2012, Lung 2013 Hx Chemotherapy: Yes - BREAST Hx Radiation Therapy: Yes - BREAST - Surgical History Surgery Procedure, Year, and Place: MELANOMA REMOVED FROM LEFT ANKLE AND BACK, OFFICE. 2000 [place]Y, [facility] [place] [facility] [place]. 2001 & FEW YEARS LATER, VENTRAL HERNIA REPAIR AT APPENDECTOMY SITE, [facility] [place] [facility] [place], lumpectomy left 2012. LL lobectomy 05/04/14. NEEDLE BIOPSY LEFT BREAST 03/12/2015. BILATERAL TUBAL LIGATION, [facility] [place] [facility] [place] Hx Anesthesia Reactions: No Infectious Disease History: No Infectious Disease History: Denies: Traveled Outside the [place] in Last 30 Days - Family History Known Family History: Positive: Other - no cancer hx, no malignant hyperthermia hx, no anesthesia reaction hx Negative: Seizure Disorder - Social History Alcohol Use: Occasionally Alcohol Amount: 2 MONTHLY Hx Substance Use: No Substance Use Type: Reports: None Hx Tobacco Use: No Smoking Status (MU): Never Smoked Tobacco Review of Systems Negative: Fever Positive: Vomiting, Nausea. Negative: Diarrhea All Other Systems Reviewed And Are Negative: Yes Physical Exam - Summary Physical Exam Summary: Constitutional: Well-developed, Well-nourished, Alert. (-) Distressed Skin: Warm, Dry HENT: Normocephalic; Atraumatic. Dry mucous membranes. Eyes: Conjunctiva normal Neck: Musculoskeletal ROM normal neck. (-) JVD, (-) Stridor, (-) Nuchal rigidity Cardio: Rhythm regular, rate normal, Heart sounds normal; Intact distal pulses; Radial pulses are 2+ and symmetric. (-) Murmur Pulmonary/Chest wall: Port on R-sided chest wall. Effort normal. (-) Respiratory distress, (-) Wheezes, (-) Rales Abd: Soft, (-) tenderness, (-) Distension, (-) Guarding, (-) Rebound Musculoskeletal: (-) Edema Lymph: (-) Cervical adenopathy Neuro: Alert, Oriented x3 Psych: Mood and affect Normal Triage Information Reviewed: Yes Vital Signs On Initial Exam: Initial Vitals Temp Pulse Resp BP Pulse Ox 97.8 F 79 16 106/47 97 12/15/18 10:01 12/15/18 10:01 12/15/18 10:01 12/15/18 10:01 12/15/18 10:01 Vital Signs Reviewed: Yes Procedures - Sedation Patient Received Moderate/Deep Sedation with Procedure: No Diagnostics - Vital Signs Vital Signs Temp Pulse Resp BP Pulse Ox 12/15/18 10:01 97.8 F 79 16 106/47 97 - Laboratory Result Diagrams: 12/15/18 10:53 12/15/18 10:53 Lab Statement: Any lab studies that have been ordered have been reviewed, and results considered in the medical decision making process. - EKG 1027 Cardiac Rate: Tachycardia - 100bpm EKG Rhythm: Sinus Tachycardia ST Segment: Normal Ectopy: None Summary of EKG Findings: An EKG at 1027 shows sinus tachycardia at 100bpm with nml axis, nml intervals. No STEMI. No acute changes. No change from prior on . ED physician has reviewed and interpreted this report. Re-Evaluation - Re-Evaluation 1st re-eval Re-Evaluation Time: 11:50 Change: Improved Comment: Pt states she feels much better. I will talk with hematology/oncology and then discharge the pt. Second Eval Re-Evaluation Time: 12:45 Comment: BP 110, usually runs 120's will give additional IVF before dc. Patient ate and drank Third Eval Change: Improved - patient feels well, BP 110 systolic. Ambulated in ED. GIGU Course/Dx - Course Course Of Treatment: 73 y/o F w hx lung cancer on hemoi followed by Dr. Spencer p /w nausea and vomiting. -Well appearing, mild tachycardia to 100s, BP soft in 90s. Will check labs, provide IVF and Zofran. - no signs of infection, denies abdominal pain, afebrile. Hx neutropenia 2/2 chemo. - Diagnoses Provider Diagnoses: Chemotherapy induced nausea and vomiting, Dehydration Discharge ED - Sign-Out/Discharge Documenting (check all that apply): Patient Departure - Discharge Plan Condition: Stable Disposition: HOME Patient Education Materials: Acute Nausea and Vomiting (ED), Chemo Induced Nausea and Vomiting (ED) Referrals: Xuan Stephenson DO [Primary Care Provider] - Additional Instructions: You were seen in the emergency department for nausea and vomiting. Please take Zofran at home as needed. Please drink lots of fluids. If any studies were not completed at the time of discharge you will be called with the relevant results. Please follow up with your primary care doctor in next 2-3 days and return to emergency department for worsening vomiting, inability to keep down food or water, fever greater than 100.4 or concerning symptoms. It was a pleasure taking care of you today. - Billing Disposition and Condition Condition: STABLE Disposition: Home - Attestation Statements Document Initiated by Yana: Yes Documenting Scribe: Paola Burch Provider For Whom Yana is Documenting (Include Credential): Nhung Briseno MD. Scribe Attestation: I, Paola Burch, scribed for Nhung Briseno MD. on 12/15/18 at 1342. Scribe Documentation Reviewed: Yes Provider Attestation: The documentation as recorded by the Paola gentile accurately reflects the service I personally performed and the decisions made by me, Nhung Briseno MD. Status of Scribe Document: Viewed Consult Consult: 1201 - I spoke with Dr. Crockett who is aware the pt is here and is ok with her discharge.
[2018-12-15] MEDS: Ondansetron INJ* 2 MG/ML VIAL IV ONE (10:57)
[2018-12-15] MEDS: NS 0.9% 1000 ML** 1,000 ML IV ONE ×2 (10:57→12:50)
[2018-12-15 11:08] LABS: Hematocrit 32 % (35-47); Hemoglobin 11.3 g/dL (12.0-16.0); Mean Corpuscular HGB Conc 35 g/dL (31-36); Mean Corpuscular Hemoglobin 31 pg (27-31); Mean Corpuscular Volume 86 fL (80-97); Mean Platelet Volume 8.3 fL (7.4-10.4); Platelet Count 111 10^3/uL (150-450); Red Cell Distribution Width 16 % (10-15)
[2018-12-15 11:13] LABS: ABS Neutrophils 0.3 10^3/ul (1.5-7.7)
[2018-12-15 11:27] LABS: Albumin/Globulin Ratio 1.1 (1-3); BUN/Creatinine Ratio 22.7 (8-20); Calcium 8.3 mg/dL (8.6-10.3); EGFR African American 75.8 (>60); EGFR Non-African American 62.6 (>60); Globulin 2.7 g/dL (2-4); Potassium 3.8 mmol/L (3.5-5.0); Total Bilirubin 1.4 mg/dL (0.2-1.0); Total Protein 5.7 g/dL (6.4-8.9)
[2018-12-15 11:33] LABS: ABS Lymphocytes 0.4 10^3/ul (1.0-4.8); ABS Monocytes 0.3 10^3/ul (0-0.8); Lymphocyte % 44.9 %; Nucleated Red Blood Cells % 0.6
[2018-12-15 14:02] VITALS: BP 110/64
== END 2018-12-15 13:40 | disposition home or self-care (01) ==
LOC: ED 09:52
DX: R11.2 Nausea with vomiting, unspecified (principal); E86.0 Dehydration; T45.1X5A Adverse effect of antineoplastic and immunosuppressive drugs, initial encounter; Y92.9 Unspecified place or not applicable; C50.919 Malignant neoplasm of unspecified site of unspecified female breast; C34.90 Malignant neoplasm of unspecified part of unspecified bronchus or lung; E11.9 Type 2 diabetes mellitus without complications; I25.10 Atherosclerotic heart disease of native coronary artery without angina pectoris; E78.00 Pure hypercholesterolemia, unspecified; I10 Essential (primary) hypertension; Z85.820 Personal history of malignant melanoma of skin; Z98.51 Tubal ligation status; Z79.01 Long term (current) use of anticoagulants; Z79.84 Long term (current) use of oral hypoglycemic drugs; Z79.899 Other long term (current) drug therapy; Z88.0 Allergy status to penicillin
CPT/HCPCS: 36415; 80053; 85025; 85060; 93005; 96361; 96374; 96375; 99283; J1642; J2405

== ENCOUNTER 2020-10-07 22:29 | Inpatient (IN) ==
[2020-10-07] MEDS ORDERED: Lactated Ringers 1000 ml BAG 1,000 ML IV ONE (22:39)
[2020-10-07 23:14] LABS: Hematocrit 20 % (35-47); Mean Corpuscular HGB Conc 35 g/dL (31-36); Mean Corpuscular Hemoglobin 31 pg (27-31); Mean Corpuscular Volume 90 fL (80-97); Mean Platelet Volume 7.5 fL (7.4-10.4); Platelet Count 246 10^3/uL (150-450); Red Blood Count 2.28 10^6 /uL (3.70-4.87); Red Cell Distribution Width 17 % (10-15); White Blood Count 0.6 10^3/uL (3.5-10.8)
[2020-10-07 23:15] LABS: Activated Partial Thrombo Time 24.8 seconds (26.0-38.0); INR 1.67 (0.86-1.15)
[2020-10-07 23:24] LABS: Albumin 3.2 g/dL (3.2-5.2); Albumin/Globulin Ratio 1.1 (1-3); C Reactive Protein 207.35 mg/L (<8.01); EGFR African American 86.7 (>60); EGFR Non-African American 71.6 (>60); Globulin 2.9 g/dL (2-4); Potassium 3.3 mmol/L (3.5-5.0); Total Bilirubin 1.3 mg/dL (0.2-1.0); Total Protein 6.1 g/dL (6.4-8.9)
[2020-10-07] MEDS ORDERED: Cefepime 1 GM in Dextrose 1 GM/50 ML BAG IV ONE (23:24)
[2020-10-07] MEDS ORDERED: Vancomycin 1,000 MG in NS 0.9% 250 ml 250 ML IVPB ONE (23:24)
[2020-10-07 23:25] LABS: Troponin I 0.02 ng/mL (<0.03)
[2020-10-08 00:26] LABS: ABS Lymphocytes 0.2 10^3/ul (1.0-4.8); ABS Monocytes 0.2 10^3/ul (0-0.8); ABS Neutrophils 0.2 10^3/ul (1.5-7.7); Eosinophil % 0.3 %; Lymphocyte % 41.7 %; Nucleated Red Blood Cells % 0.4
[2020-10-08 03:34] LABS: Magnesium 1.9 mg/dL (1.9-2.7)
[2020-10-08 04:18] LABS: Hematocrit 21 % (35-47); Hemoglobin 7.5 g/dL (12.0-16.0); Mean Corpuscular HGB Conc 36 g/dL (31-36); Mean Corpuscular Hemoglobin 32 pg (27-31); Mean Corpuscular Volume 89 fL (80-97); Mean Platelet Volume 7.5 fL (7.4-10.4); Platelet Count 223 10^3/uL (150-450); Red Blood Count 2.35 10^6 /uL (3.70-4.87); Red Cell Distribution Width 17 % (10-15); White Blood Count 0.8 10^3/uL (3.5-10.8)
[2020-10-08 04:45] LABS: CO2 Carbon Dioxide 22 mmol/L (22-32); Calcium 7.6 mg/dL (8.6-10.3); Chloride 101 mmol/L (101-111); Magnesium 1.8 mg/dL (1.9-2.7); Sodium 131 mmol/L (135-145)
[2020-10-08 04:51] LABS: Blood Urea Nitrogen 15 mg/dL (6-24); EGFR African American 108.9 (>60); Glucose 169 mg/dL (70-100)
[2020-10-08 04:59] LABS: Anion Gap 8 mmol/L (2-11)
[2020-10-08 05:02] LABS: Anisocytosis 1+
[2020-10-08 05:03] LABS: Basophilic Stippling 1+; Polychromasia 1+
[2020-10-08 05:07] LABS: ABS Lymphocytes 0.5 10^3/ul (1.0-4.8); ABS Monocytes 0.2 10^3/ul (0-0.8); ABS Neutrophils 0.2 10^3/ul (1.5-7.7); Lymphocyte % 53.5 %; Nucleated Red Blood Cells % 0.3
[2020-10-08] MEDS ORDERED: Dextrose 50% Syringe 50 ml 25 GM/50 ML SYRINGE IV PUSH PRN (05:21)
[2020-10-08 06:19] LABS: Urine Appearance Cloudy; Urine Bilirubin Negative (Negative); Urine Blood Negative (Negative); Urine Color Amber; Urine Glucose 1+(50 mg/dL) (Negative); Urine Ketones Trace (Negative); Urine Nitrite Negative (Negative); Urine Protein 1+(30 mg/dL) (Negative); Urine Specific Gravity 1.024 (1.002-1.030); Urine Urobilinogen Negative (Negative)
[2020-10-08 06:22] LABS: Urine Bacteria 1+ (Absent); Urine Red Blood Cell 1+(3-5/hpf) (Absent); Urine Squamous Epithelial Cell Present (Absent); Urine White Blood Cell 1+(6-10/hpf) (Absent)
[2020-10-08] MEDS ORDERED: Magnesium Sulfate 2 gm BAG 2 GM/50 ML BAG IVPB ONE (06:28)
[2020-10-08 06:32] LABS: INR 1.58 (0.86-1.15)
[2020-10-08] MEDS ORDERED: Warfarin per PHARMACY **NOTE FOLLOW UP SCH (07:00)
[2020-10-08] MEDS: Cefepime 2 GM in Dextrose 2 GM/50 ML BAG IV SCH ×2 (12:42→23:37)
[2020-10-08] MEDS ORDERED: Gadoteridol (CONTRAST) 279.3 MG/ML 10 ML IV ONE (17:12)
[2020-10-08 23:19] LABS: Hematocrit 20 % (35-47); Hemoglobin 7.2 g/dL (12.0-16.0); Mean Corpuscular HGB Conc 36 g/dL (31-36); Mean Corpuscular Hemoglobin 31 pg (27-31); Mean Corpuscular Volume 87 fL (80-97); Mean Platelet Volume 7.2 fL (7.4-10.4); Platelet Count 228 10^3/uL (150-450); Red Cell Distribution Width 17 % (10-15); White Blood Count 1.2 10^3/uL (3.5-10.8)
[2020-10-09 00:50] LABS: Anisocytosis 1+
[2020-10-09 00:51] LABS: ABS Lymphocytes 0.7 10^3/ul (1.0-4.8); ABS Monocytes 0.4 10^3/ul (0-0.8); Eosinophil % 0.1 %; Nucleated Red Blood Cells % 0.2; Polychromasia 1+
[2020-10-09 00:55] LABS: ABS Neutrophils 0.2 10^3/ul (1.5-7.7)
[2020-10-09 04:35] LABS: Hematocrit 21 % (35-47); Hemoglobin 7.5 g/dL (12.0-16.0); Mean Corpuscular HGB Conc 35 g/dL (31-36); Mean Corpuscular Hemoglobin 31 pg (27-31); Mean Corpuscular Volume 88 fL (80-97); Platelet Count 242 10^3/uL (150-450); Red Blood Count 2.41 10^6 /uL (3.70-4.87); Red Cell Distribution Width 17 % (10-15); White Blood Count 1.3 10^3/uL (3.5-10.8)
[2020-10-09 04:53] LABS: Calcium 7.8 mg/dL (8.6-10.3); EGFR African American 112.9 (>60); EGFR Non-African American 93.3 (>60); Magnesium 1.7 mg/dL (1.9-2.7); Potassium 2.9 mmol/L (3.5-5.0)
[2020-10-09] MEDS ORDERED: Magnesium Sulfate 2 gm BAG 2 GM/50 ML BAG IVPB ONE ×2 (05:17→06:47)
[2020-10-09] MEDS ORDERED: Potassium Chlor 20 meq TAB.ER PO ONE ×2 (05:17→06:47)
[2020-10-09 11:40] LABS: INR 1.77 (0.86-1.15)
[2020-10-09] MEDS: Cefepime 2 GM in Dextrose 2 GM/50 ML BAG IV SCH (12:13)
[2020-10-09] MEDS ORDERED: Potassium Chloride LIQUID 20 MEQ/15 ML LIQUID PO ONE (12:31)
[2020-10-09 13:26] LABS: ABS Lymphocytes 0.6 10^3/ul (1.0-4.8); ABS Monocytes 0.5 10^3/ul (0-0.8); ABS Neutrophils 0.2 10^3/ul (1.5-7.7); Lymphocyte % 43.6 %; Nucleated Red Blood Cells % 0.4
[2020-10-09 13:31] LABS: RBC Morphology Normal (Normal)
[2020-10-09] MEDS: Warfarin DAILY REMINDER **NOTE FOLLOW UP SCH (21:18)
[2020-10-10] MEDS: Cefepime 2 GM in Dextrose 2 GM/50 ML BAG IV SCH ×3 (00:04→23:45)
[2020-10-10 05:35] LABS: Hematocrit 21 % (35-47); Hemoglobin 7.5 g/dL (12.0-16.0); Mean Corpuscular HGB Conc 35 g/dL (31-36); Mean Corpuscular Hemoglobin 31 pg (27-31); Mean Corpuscular Volume 89 fL (80-97); Platelet Count 236 10^3/uL (150-450); Red Cell Distribution Width 17 % (10-15)
[2020-10-10 05:45] LABS: INR 2.03 (0.86-1.15)
[2020-10-10 05:51] LABS: Calcium 8.3 mg/dL (8.6-10.3); EGFR African American 138.4 (>60); EGFR Non-African American 114.3 (>60); Magnesium 2.1 mg/dL (1.9-2.7); Potassium 3.8 mmol/L (3.5-5.0)
[2020-10-10 08:31] LABS: Anisocytosis 1+
[2020-10-10 08:32] LABS: Polychromasia 1+
[2020-10-10 08:38] LABS: ABS Lymphocytes 0.9 10^3/ul (1.0-4.8); ABS Monocytes 0.7 10^3/ul (0-0.8); ABS Neutrophils 0.4 10^3/ul (1.5-7.7); Eosinophil % 0.1 %; Lymphocyte % 46.2 %; Nucleated Red Blood Cells % 0.3
[2020-10-10] MEDS: Warfarin DAILY REMINDER **NOTE FOLLOW UP SCH (18:16)
[2020-10-11 07:51] LABS: Hematocrit 22 % (35-47); Hemoglobin 7.7 g/dL (12.0-16.0); Mean Corpuscular HGB Conc 36 g/dL (31-36); Mean Corpuscular Hemoglobin 32 pg (27-31); Mean Corpuscular Volume 88 fL (80-97); Mean Platelet Volume 7.1 fL (7.4-10.4); Platelet Count 286 10^3/uL (150-450); Red Blood Count 2.44 10^6 /uL (3.70-4.87); Red Cell Distribution Width 17 % (10-15); White Blood Count 3.9 10^3/uL (3.5-10.8)
[2020-10-11 07:58] LABS: INR 2.74 (0.86-1.15)
[2020-10-11 08:04] LABS: EGFR African American 135.3 (>60); EGFR Non-African American 111.9 (>60); Magnesium 1.8 mg/dL (1.9-2.7); Potassium 3.8 mmol/L (3.5-5.0)
[2020-10-11 08:36] LABS: Anisocytosis 1+
[2020-10-11 08:39] LABS: Microcytosis 1+
[2020-10-11 08:47] LABS: ABS Lymphocytes 1.3 10^3/ul (1.0-4.8); ABS Monocytes 1.3 10^3/ul (0-0.8); ABS Neutrophils 1.3 10^3/ul (1.5-7.7); Eosinophil % 0.1 %; Lymphocyte % 32.8 %; Nucleated Red Blood Cells % 0.1
[2020-10-11] MEDS: Warfarin DAILY REMINDER **NOTE FOLLOW UP SCH (19:06)
[2020-10-11 23:27] LABS: Anaplasma phagocytophilum Negative (Negative); B. miyamotoi PCR, B Negative (Negative); Babesia divergens/MO-1 Negative (Negative); Babesia ducani Negative (Negative); Ehrlichia chaffeensis Negative (Negative); Ehrlichia ewingii/canis Negative (Negative); Ehrlichia muris eauclairensis Negative (Negative)
[2020-10-12 05:05] LABS: Hematocrit 23 % (35-47); Hemoglobin 8.1 g/dL (12.0-16.0); Mean Corpuscular HGB Conc 35 g/dL (31-36); Mean Corpuscular Hemoglobin 31 pg (27-31); Mean Corpuscular Volume 88 fL (80-97); Mean Platelet Volume 6.9 fL (7.4-10.4); Platelet Count 326 10^3/uL (150-450); Red Blood Count 2.61 10^6 /uL (3.70-4.87); Red Cell Distribution Width 17 % (10-15); White Blood Count 6.7 10^3/uL (3.5-10.8)
[2020-10-12 05:13] LABS: INR 2.62 (0.86-1.15)
[2020-10-12 05:20] LABS: Calcium 8.1 mg/dL (8.6-10.3); EGFR African American 138.4 (>60); EGFR Non-African American 114.3 (>60); Magnesium 1.8 mg/dL (1.9-2.7); Potassium 3.6 mmol/L (3.5-5.0)
[2020-10-12 05:39] LABS: Anisocytosis 2+
[2020-10-12 05:40] LABS: ABS Lymphocytes 1.9 10^3/ul (1.0-4.8); ABS Monocytes 1.8 10^3/ul (0-0.8); ABS Neutrophils 3.1 10^3/ul (1.5-7.7); Eosinophil % 0.1 %; Lymphocyte % 27.9 %; Nucleated Red Blood Cells % 0.2
[2020-10-12] MEDS ORDERED: Regadenoson 0.4 MG/5 ML SYRINGE ONE (08:46)
[2020-10-12] MEDS ORDERED: Aminophylline 25 MG/ML VIAL ONE (08:46)
[2020-10-12 12:29] VITALS: BP 130/58
== END 2020-10-12 13:30 | disposition home or self-care (01) | DRG 809 ==
LOC: EDHOLD 22:29 → ED 22:29 → MEDTELE 10-08 02:45
PROVIDERS: ADMIT Internal Medicine; ATTEND Internal Medicine

== ENCOUNTER 2020-12-02 13:08 | Inpatient (IN) ==
[2020-12-02] MEDS ORDERED: Lactated Ringers 1000 ml BAG 1,000 ML IV SCH (14:00)
[2020-12-02 14:52] LABS: Hematocrit 23 % (35-47); Hemoglobin 8.2 g/dL (12.0-16.0); Mean Corpuscular HGB Conc 36 g/dL (31-36); Mean Corpuscular Hemoglobin 33 pg (27-31); Mean Corpuscular Volume 93 fL (80-97); Platelet Count 233 10^3/uL (150-450); Red Blood Count 2.47 10^6 /uL (3.70-4.87); Red Cell Distribution Width 19 % (10-15); White Blood Count 1.3 10^3/uL (3.5-10.8)
[2020-12-02 14:57] LABS: ABS Lymphocytes 0.3 10^3/ul (1.0-4.8); ABS Monocytes 0.1 10^3/ul (0-0.8); ABS Neutrophils 0.8 10^3/ul (1.5-7.7); Eosinophil % 0.1 %; Lymphocyte % 25.8 %; Nucleated Red Blood Cells % 0.2
[2020-12-02 15:12] LABS: Albumin 3.4 g/dL (3.2-5.2); Albumin/Globulin Ratio 1.1 (1-3); C Reactive Protein 87.87 mg/L (<8.01); Calcium 9.3 mg/dL (8.6-10.3); Potassium 3.9 mmol/L (3.5-5.0); Total Bilirubin 0.8 mg/dL (0.2-1.0); Total Protein 6.4 g/dL (6.4-8.9)
[2020-12-02 15:14] LABS: Troponin I 0.01 ng/mL (<0.03)
[2020-12-02] MEDS ORDERED: Iohexol 350 (CONTRAST) 500 ML MDV IV ONE (15:19)
[2020-12-02 15:44] LABS: Magnesium 1.9 mg/dL (1.9-2.7)
[2020-12-02] MEDS ORDERED: NS 0.9% 1000 ml BAG 1,000 ML IV ONE (17:47)
[2020-12-02 18:31] LABS: INR 2.07 (0.86-1.15)
[2020-12-02] MEDS: Cefepime 2 GM in Dextrose 2 GM/50 ML BAG IV SCH (18:46)
[2020-12-02 19:06] LABS: Urine Appearance Cloudy; Urine Bilirubin Negative (Negative); Urine Blood Negative (Negative); Urine Color Yellow; Urine Glucose Negative (Negative); Urine Ketones Negative (Negative); Urine Nitrite Negative (Negative); Urine Protein Negative (Negative); Urine Specific Gravity 1.036 (1.002-1.030); Urine Urobilinogen Negative (Negative)
[2020-12-02 19:34] LABS: Rapid COVID-19 Molecular Undetected (Undetected)
[2020-12-03 04:42] LABS: ABS Monocytes 0.3 10^3/ul (0-0.8); ABS Neutrophils 1.3 10^3/ul (1.5-7.7); Eosinophil % 0.2 %; Hematocrit 22 % (35-47); Hemoglobin 7.4 g/dL (12.0-16.0); Lymphocyte % 39.5 %; Mean Corpuscular HGB Conc 34 g/dL (31-36); Mean Corpuscular Hemoglobin 32 pg (27-31); Mean Corpuscular Volume 94 fL (80-97); Mean Platelet Volume 6.8 fL (7.4-10.4); Nucleated Red Blood Cells % 0.1; Platelet Count 247 10^3/uL (150-450); Red Blood Count 2.32 10^6 /uL (3.70-4.87); Red Cell Distribution Width 20 % (10-15); White Blood Count 2.6 10^3/uL (3.5-10.8)
[2020-12-03 04:46] LABS: INR 1.95 (0.86-1.15)
[2020-12-03 04:56] LABS: Anion Gap 7 mmol/L (2-11); Blood Urea Nitrogen 12 mg/dL (6-24); CO2 Carbon Dioxide 25 mmol/L (22-32); Calcium 8.9 mg/dL (8.6-10.3); Chloride 101 mmol/L (101-111); Glucose 130 mg/dL (70-100); Potassium 3.9 mmol/L (3.5-5.0); Sodium 133 mmol/L (135-145)
[2020-12-03] MEDS: Cefepime 2 GM in Dextrose 2 GM/50 ML BAG IV SCH ×2 (08:05→18:46)
[2020-12-03 09:29] LABS: Total Iron Binding Capacity 232 mcg/dL (250-450); Transferrin 166 mg/dL (203-362)
[2020-12-03 09:30] LABS: % Iron Saturation 9 % (15-55); Iron < 20 ug/dL (50-212); Unsaturated Iron Binding < 217 ug/dL
[2020-12-03 09:49] LABS: Ferritin 433.7 ng/mL (11-307)
[2020-12-03 09:53] LABS: Folate > 20.00 ng/mL (5.90-24.80); Vitamin B12 424 pg/mL (180-914)
[2020-12-03] MEDS ORDERED: Warfarin per PHARMACY **NOTE FOLLOW UP SCH (11:00)
[2020-12-03] MEDS ORDERED: Gadoteridol (CONTRAST) 279.3 MG/ML 10 ML IV ONE (14:50)
[2020-12-04] MEDS: Cefepime 2 GM in Dextrose 2 GM/50 ML BAG IV SCH ×2 (06:03→17:25)
[2020-12-04 06:45] LABS: Hematocrit 20 % (35-47); Hemoglobin 7.1 g/dL (12.0-16.0); Mean Corpuscular HGB Conc 35 g/dL (31-36); Mean Corpuscular Hemoglobin 33 pg (27-31); Mean Corpuscular Volume 94 fL (80-97); Platelet Count 235 10^3/uL (150-450); Red Blood Count 2.16 10^6 /uL (3.70-4.87); Red Cell Distribution Width 19 % (10-15); White Blood Count 2.3 10^3/uL (3.5-10.8)
[2020-12-04 06:53] LABS: INR 1.7 (0.86-1.15)
[2020-12-04 07:00] LABS: ABS Neutrophils 0.8 10^3/ul (1.5-7.7); Calcium 8.4 mg/dL (8.6-10.3); Potassium 3.8 mmol/L (3.5-5.0)
[2020-12-04 07:17] LABS: ABS Lymphocytes 1.1 10^3/ul (1.0-4.8); ABS Monocytes 0.4 10^3/ul (0-0.8); Eosinophil % 0.7 %; Nucleated Red Blood Cells % 0.1
[2020-12-04] MEDS: Warfarin DAILY REMINDER **NOTE FOLLOW UP SCH (17:25)
[2020-12-05] MEDS: Cefepime 2 GM in Dextrose 2 GM/50 ML BAG IV SCH ×2 (06:28→17:17)
[2020-12-05 06:51] LABS: Hematocrit 22 % (35-47); Hemoglobin 7.5 g/dL (12.0-16.0); Mean Corpuscular HGB Conc 35 g/dL (31-36); Mean Corpuscular Hemoglobin 33 pg (27-31); Mean Corpuscular Volume 94 fL (80-97); Mean Platelet Volume 6.5 fL (7.4-10.4); Platelet Count 269 10^3/uL (150-450); Red Cell Distribution Width 19 % (10-15); White Blood Count 2.7 10^3/uL (3.5-10.8)
[2020-12-05 06:52] LABS: INR 1.45 (0.86-1.15)
[2020-12-05 07:20] LABS: ABS Neutrophils 0.9 10^3/ul (1.5-7.7)
[2020-12-05 07:40] LABS: ABS Lymphocytes 1.3 10^3/ul (1.0-4.8); ABS Monocytes 0.5 10^3/ul (0-0.8); Eosinophil % 1.3 %; Lymphocyte % 46.5 %; Nucleated Red Blood Cells % 0.3
[2020-12-05] MEDS: Warfarin DAILY REMINDER **NOTE FOLLOW UP SCH (17:17)
[2020-12-06 06:36] LABS: Hematocrit 23 % (35-47); Hemoglobin 7.7 g/dL (12.0-16.0); Mean Corpuscular HGB Conc 34 g/dL (31-36); Mean Corpuscular Hemoglobin 32 pg (27-31); Mean Corpuscular Volume 94 fL (80-97); Mean Platelet Volume 6.8 fL (7.4-10.4); Platelet Count 282 10^3/uL (150-450); Red Blood Count 2.38 10^6 /uL (3.70-4.87); Red Cell Distribution Width 19 % (10-15); White Blood Count 3.8 10^3/uL (3.5-10.8)
[2020-12-06 06:46] LABS: Albumin/Globulin Ratio 1.1 (1-3); Calcium 8.2 mg/dL (8.6-10.3); Globulin 2.8 g/dL (2-4); Potassium 3.7 mmol/L (3.5-5.0); Total Bilirubin 0.3 mg/dL (0.2-1.0); Total Protein 5.8 g/dL (6.4-8.9)
[2020-12-06 07:51] LABS: ABS Lymphocytes 1.7 10^3/ul (1.0-4.8); ABS Monocytes 0.7 10^3/ul (0-0.8); ABS Neutrophils 1.3 10^3/ul (1.5-7.7); Eosinophil % 0.8 %; Lymphocyte % 45.5 %; Nucleated Red Blood Cells % 0.1
[2020-12-06 08:21] VITALS: BP 142/82
== END 2020-12-06 12:30 | disposition home or self-care (01) | DRG 809 ==
LOC: ED 13:08 → MED 23:09 → SUATTDRO 23:09 → MED 12-03 01:19
PROVIDERS: ADMIT Internal Medicine; ATTEND Internal Medicine

== ENCOUNTER 2021-06-08 04:51 | Inpatient (IN) ==
[2021-06-08] MEDS ORDERED: NS 0.9% 1000 ml BAG 1,000 ML IV ONE (05:26)
[2021-06-08 06:14] LABS: Hematocrit 27 % (35-47); Hemoglobin 9.1 g/dL (12.0-16.0); Mean Corpuscular HGB Conc 34 g/dL (31-36); Mean Corpuscular Hemoglobin 28 pg (27-31); Mean Corpuscular Volume 81 fL (80-97); Mean Platelet Volume 6.6 fL (7.4-10.4); Platelet Count 291 10^3/uL (150-450); Red Blood Count 3.33 10^6 /uL (3.70-4.87); Red Cell Distribution Width 19 % (10-15); White Blood Count 4.1 10^3/uL (3.5-10.8)
[2021-06-08 06:40] LABS: High Sens Troponin Baseline 11 pg/mL (<15)
[2021-06-08 07:03] LABS: ALT 4 U/L (7-52); Albumin 3.4 g/dL (3.2-5.2); Albumin/Globulin Ratio 1.2 (1-3); Alkaline Phosphatase 49 U/L (35-149); Blood Urea Nitrogen 7 mg/dL (6-24); CO2 Carbon Dioxide 27 mmol/L (22-32); Calcium 8.5 mg/dL (8.6-10.3); Chloride 100 mmol/L (101-111); Globulin 2.8 g/dL (2-4); Glucose 119 mg/dL (70-100); Sodium 134 mmol/L (135-145); Total Protein 6.2 g/dL (6.4-8.9); eGFR CKD-EPI 70.1 (>60)
[2021-06-08 07:06] LABS: Anion Gap 7 mmol/L (2-11)
[2021-06-08 07:48] LABS: High Sensitivity Troponin 1 Hr 12 pg/mL (<15)
[2021-06-08 08:11] LABS: ABS Lymphocytes 0.4 10^3/ul (1.0-4.8); ABS Monocytes 0.5 10^3/ul (0-0.8); ABS Neutrophils 3.1 10^3/ul (1.5-7.7); Eosinophil % 0.1 %; Lymphocyte % 8.9 %
[2021-06-08 08:59] LABS: Magnesium 1.7 mg/dL (1.9-2.7); Potassium Redraw 3.9 mmol/L (3.5-5.0)
[2021-06-08] MEDS ORDERED: Magnesium Sulfate 2 gm BAG 2 GM/50 ML BAG IVPB ONE (09:21)
[2021-06-08] MEDS ORDERED: Ondansetron 4 mg VIAL 2 MG/ML 2 ml VIAL IV PRN (09:47)
[2021-06-08] MEDS: NS 0.9% 1000 ml BAG 1,000 ML IV SCH ×2 (10:03→17:49)
[2021-06-08 12:51] LABS: INR 2.5 (0.86-1.15)
[2021-06-08] MEDS ORDERED: Remdesivir 100 mg Vial 200 MG in NS 0.9% 250 ml 210 ML IV ONE (13:00)
[2021-06-08] MEDS ORDERED: Digoxin IV 0.5 MG/2 ML AMP (0.25 MG/ML) IV SLOW PU ONE (17:06)
[2021-06-09] MEDS: NS 0.9% 1000 ml BAG 1,000 ML IV SCH ×3 (05:06→19:25)
[2021-06-09 05:26] LABS: INR 1.43 (0.86-1.15)
[2021-06-09 05:50] LABS: Albumin 3.1 g/dL (3.2-5.2); Albumin/Globulin Ratio 1.4 (1-3); Calcium 7.4 mg/dL (8.6-10.3); Globulin 2.2 g/dL (2-4); Potassium 3.7 mmol/L (3.5-5.0); Total Bilirubin 0.3 mg/dL (0.2-1.0); Total Protein 5.3 g/dL (6.4-8.9); eGFR CKD-EPI 92.2 (>60)
[2021-06-09] MEDS ORDERED: Calcium Gluconate 2 GM in NS 0.9% 100 ml BAG 100 ML IV ONE (07:41)
[2021-06-09] MEDS ORDERED: Magnesium Sulfate IV 1GM/100ML 1 GM/100 ML BAG IV ONE (07:41)
[2021-06-09] MEDS: Potassium Chlor 20 meq TAB.ER PO SCH (09:36)
[2021-06-09] MEDS: Remdesivir 100 mg Vial 100 MG in NS 0.9% 250 ml 230 ML IV SCH (11:13)
[2021-06-10] MEDS: NS 0.9% 1000 ml BAG 1,000 ML IV SCH ×2 (03:01→10:06)
[2021-06-10 04:51] LABS: INR 1.65 (0.86-1.15)
[2021-06-10 05:12] LABS: Albumin 3.5 g/dL (3.2-5.2); Albumin/Globulin Ratio 1.4 (1-3); Calcium 7.7 mg/dL (8.6-10.3); Globulin 2.5 g/dL (2-4); Potassium 3.7 mmol/L (3.5-5.0); Total Bilirubin 0.3 mg/dL (0.2-1.0); eGFR CKD-EPI 91.1 (>60)
[2021-06-10 08:11] LABS: Magnesium 1.6 mg/dL (1.9-2.7)
[2021-06-10] MEDS: Potassium Chlor 20 meq TAB.ER PO SCH (10:06)
[2021-06-10] MEDS ORDERED: Magnesium Sulfate 2 gm BAG 2 GM/50 ML BAG IVPB ONE (10:11)
[2021-06-10] MEDS: Remdesivir 100 mg Vial 100 MG in NS 0.9% 250 ml 230 ML IV SCH (10:24)
[2021-06-11 05:11] LABS: ABS Lymphocytes 1.1 10^3/ul (1.0-4.8); ABS Neutrophils 2.5 10^3/ul (1.5-7.7); Hematocrit 28 % (35-47); Hemoglobin 9.6 g/dL (12.0-16.0); Lymphocyte % 23.3 %; Mean Corpuscular HGB Conc 34 g/dL (31-36); Mean Corpuscular Hemoglobin 28 pg (27-31); Mean Corpuscular Volume 80 fL (80-97); Mean Platelet Volume 6.7 fL (7.4-10.4); Nucleated Red Blood Cells % 0.1; Platelet Count 323 10^3/uL (150-450); Red Blood Count 3.48 10^6 /uL (3.70-4.87); Red Cell Distribution Width 18 % (10-15); White Blood Count 4.6 10^3/uL (3.5-10.8)
[2021-06-11 05:17] LABS: INR 1.68 (0.86-1.15)
[2021-06-11 06:20] LABS: Albumin 3.5 g/dL (3.2-5.2); Albumin/Globulin Ratio 1.2 (1-3); Calcium 8.2 mg/dL (8.6-10.3); Globulin 2.9 g/dL (2-4); Potassium 3.4 mmol/L (3.5-5.0); Total Bilirubin 0.5 mg/dL (0.2-1.0); Total Protein 6.4 g/dL (6.4-8.9); eGFR CKD-EPI 92.2 (>60)
[2021-06-11 07:58] LABS: Magnesium 1.8 mg/dL (1.9-2.7)
[2021-06-11] MEDS ORDERED: Potassium Chlor 20 meq TAB.ER PO ONE (09:00)
[2021-06-11] MEDS: Remdesivir 100 mg Vial 100 MG in NS 0.9% 250 ml 230 ML IV SCH (10:02)
[2021-06-11] MEDS: Potassium Chlor 20 meq TAB.ER PO SCH (10:03)
[2021-06-11 11:42] VITALS: BP 122/64
== END 2021-06-11 15:30 | disposition home or self-care (01) | DRG 178 ==
LOC: ED 04:51 → EDHOLD 04:51 → MED 14:52 → SUATTDRO 06-09 16:00
PROVIDERS: ADMIT Hospitalist; ATTEND Internal Medicine